=== PATIENT | male | born 1960 | race Caucasian/White ===

== ENCOUNTER 2019-04-02 08:18 | Emergency (ER) | payer MEDICARE ==
[~2019-04-02] VITALS: Ht 72 cm; Wt 118.0 kg
[~2019-04-02 08:18] MED LIST: ALBU0.632 IH; ALBU8.5H2 IH; ALBU8.5H4 IH; ALLO100T PO; ALPR.5T PO; BAKING SODA PO; BSP10T PO; BUDE6HFA IH; CHOL10003 PO; DOXE100C4 PO; DULO60CA6 PO; GABA600T2 PO; HYDR-3583 PO; HYDR1TAB PO; HYDR1TAB86 PO; HYDR50TA3 PO; LISI20TA PO; MELO-198 PO; MNTL10T PO; MPR22TI TOP; OMEG1CAP51 PO; OMEP20CA12 PO; OXC5T PO; POTA10TA6 PO; PRD20T PO; SIMV40TA4 PO; TOBR5DRO2 OP; TRAZ150T42 PO; ZOLP10TA5 PO
--- NOTE | 2019-04-02 09:14 | ED Lower Extremity ---
General Chief Complaint: Lower Extremity Stated Complaint: L FOOT PAIN Nursing Triage Note: PT CO OF R FOOT PAIN, HEEL AREA. STATES WEDNESDAY STEPPED OUT OF TRUCK ON UNEVEN GROUND AND FEELS LIKE TWISTED HEEL, RATES PAIN 09/28. PT STATES THOUGH IT WOULD GET BETTER Nursing Sepsis Screen: No Definite Risk Source: patient History of Present Illness Date Seen by Provider: Apr 02, 2019 Time Seen by Provider: 08:57 Initial Comments PT ARRIVES VIA POV FROM HOME C/O LEFT FOOT PAIN STATES LAST WEDNESDAY AROUND 10:00 AM, HE "STEPPED WRONG" OUT OF HIS TRUCK, ON U[place]VEN SURFACE AND THINKS HE TWISTED HIS HEEL--STATES HE WAS WEARING BOOTS THAT DIDN'T FIT RIGHT AT THE TIME HAS HAD PAIN IN LEFT HEEL SINCE THEN STATES THE AREA IS NOT TENDER TO PALPATION, BUT HAS NOT BEEN ABLE TO WALK ON IT DUE TO PAIN HAS NOT TAKEN ANYTHING FOR PAIN NO PARESTHESIAS OR MOTOR DEFICITS HAS HAD PRIOR FRACTURE TO THIS FOOT, AND HAD A BAD LACERATION TO IT, BUT NO PRIOR SURGERY TO THIS FOOT OR ANKLE PRIOR TO DISMISSAL, PT NOW REPORTS THAT HE HAS BEEN HAVING PAIN IN BOTH HEELS, BUT MORE ON LEFT HEEL, FOR MANY MONTHS--WANTS TO SEE DR. TAM, STATES HE HAS DISCUSSED THIS WITH DR. PERKINS, BUT HAS NOT BEEN REFERRED OR MADE AN APPOINTMENT [facility] PERK[facility] Allergies and Home Medications Allergies Coded Allergies: No Known Drug Allergies (Unverified , 03/20/10) Home Medications Albuterol 8.5 Gm Hfa.aer.ad, 8.5 GM IH Q4H PRN, (Reported) 2 PUFFS PRN ASTHMA Albuterol Sulfate 0.63 Mg/3 Ml Vial.neb, 1 VIAL IH Q4HR PRN, (Reported) PRN ASTHMA Allopurinol 100 Mg Tab, 100 MG PO DAILY, (Reported) Alprazolam 0.5 Mg Tablet, 0.5 MG PO TID, (Reported) Budesonide/Formoterol Fumarate 10.2 Gm Hfa.aer.ad, 2 PUFF IH BID, (Reported) Buspirone Hcl 10 Mg Tablet, 10 MG PO BID, (Reported) Cholecalciferol 1,000 Unit Tablet, 1,000 UNIT PO DAILY, (Reported) Doxepin Hcl 100 Mg Capsule, 100 MG PO DAILY, (Reported) Duloxetine Hcl 60 Mg Capsule.dr, 60 MG PO DAILY, (Reported) Gabapentin 600 Mg Tablet, 600 MG PO TID, (Reported) Hydrocodone Bit/Acetaminophen 1 Tab Tab, 1 EA PO Q4-6 hrs PRN, (Reported) Lisinopril 20 Mg Tablet, 20 MG PO DAILY, (Reported) Meloxicam 15 Mg Tablet, 15 MG PO DAILY Prescribed by: ANETTE PRICE on 04/02/19 0956 Montelukast Sodium 10 Mg Tab, 10 MG PO DAILY, (Reported) [place]-3 Fatty Acids/Fish Oil 1 Each Capsule, 1,000 MG PO DAILY, (Reported) Omeprazole 20 Mg Capsule.dr, 20 MG PO DAILY, (Reported) Oxycodone Hcl 5 Mg Tab, 1 TAB PO Q4H PRN Prescribed by: KECIA GONZALEZ on 01/09/13 1001 Simvastatin 40 Mg Tablet, 40 MG PO DAILY, (Reported) Trazodone Hcl 150 Mg Tablet, 150 MG PO HS, (Reported) [Baking Soda] , 1 TSP PO DAILY, (Reported) DISSOLVE IN WATER Patient Home Medication List Home Medication List Reviewed: Yes Review of Systems Constitutional: no symptoms reported Musculoskeletal: see HPI Skin: no symptoms reported Psychiatric/Neurological: No Symptoms Reported Past Nmkxnqs-Qpgbkz-Zhhgmz Hx Patient Social History Alcohol Use: Occasionally Uses Recreational Drug Use: No Smoking Status: Former Smoker Recent Foreign Travel: No Contact w/Someone Who Travel: No Recent Infectious Disease Expo: No Recent Hopitalizations: No Physical Abuse: No Sexual Abuse: No Immunizations Up To Date Date of Pneumonia Vaccine: Jan 04, 2010 Date of Influenza Vaccine: Feb 04, 2013 Past Medical History Surgeries: Yes (R PAROTID GLAND, BENIGN NECK TUMORS,PILONIDAL CYST,SKIN CA L FA/SKIN GRAFT) Respiratory: Yes Asthma Cardiac: Yes High Cholesterol, Hypertension Neurological: No Reproductive Disorders: No Genitourinary: No Gastrointestinal: Yes Gastroesophageal Reflux, Hiatal Hernia Musculoskeletal: Yes (RESTLESS LEG SYNDROME; LEFT FOOT FRACTURE--NO SURGERY; ) Gout Endocrine: No Cancer: Yes (SQUAMOUS CELL CA LEFT FOREARM) Skin Did You Recieve Any Treatments: Yes What Type of Treatment Did You: Surgical Intervention Psychosocial: Yes Anxiety, Depression Integumentary: Yes (SKIN CANCER) Blood Disorders: No Physical Exam Vital Signs Vital Signs - First Documented 04/02/19 08:30 Temp 36.7 Pulse 73 Resp 20 B/P (MAP) 192/107 (135) Pulse Ox 90 O2 Delivery Room Air Capillary Refill : Less Than 3 Seconds Height, Weight, BMI Height: 5'11" Weight: 273lbs. 0.0oz. [id number]; 227.00 BMI Method:Stated General Appearance: WD/WN, no apparent distress, other (SMILING, TALKATIVE. ) Ankles: left ankle non-tender, left ankle normal inspection, left ankle normal range of motion, left ankle no evidence of injury Feet: left foot normal inspection, left foot normal range of motion, left foot no evidence of injury, left foot bone tenderness (MARKED PINPOINT TENDERNESS TO CENTER OF HEEL), left foot soft tissue tenderness (MARKED PINPOINT TENDERNESS TO CENTER OF HEEL), left foot other (PAIN WITH WEIGHT BEARING TO LEFT HEEL. NO SWELLING OR BRUISING OR EXTERNAL EVIDENCE OF TRAUMA. 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, no motor/sensory deficits, alert, normal mood/affect, oriented x 3 Skin: normal color, warm/dry; No ecchymosis Procedures/Interventions Splinting and Joint Reduction : Rj wrap: Yes Immobilizers: Step Light Walker s/m/lg Progress/Results/Core Measures Results/Orders My Orders Orders - ANETTE PRICE DO Foot, Left, 3 Views (04/02/19 09:08) Heel, Left, 2 View (04/02/19 09:08) Rj Bandage (04/02/19 09:53) Steplite (04/02/19 09:53) Vital Signs/I&O 04/02/19 04/02/19 08:30 10:12 Temp 36.7 36.7 Pulse 73 73 Resp 20 20 B/P (MAP) 192/107 (135) 192/107 (135) Pulse Ox 90 90 O2 Delivery Room Air Blood Pressure Mean: 135 Progress Progress Note : Progress Note PT REPORTS THAT HE HAS NOT TAKEN HIS BP MEDICATION TODAY, AND HIS BP IS FINE AFTER HE TAKES IT. PT REPORTS THAT O2 SAT OF 90% "IS GOOD FOR ME" PT IS ASYMPTOMATIC REGARDING THESE VITALS Diagnostic Imaging Comments XRAYS: PER RADIOLOGIST REPORTS AT 0949: LEFT FOOT--DEGENERATIVE CHANGES, NO ACUTE PROCESS LEFT HEEL--DEGENERATIVE CHANGES, HEEL SPUR. NO ACUTE PROCESS Reviewed: Reviewed by Me Departure Impression Primary Impression: LEFT HEEL SPUR Disposition: 01 HOME, SELF-CARE Condition: Stable Departure-Patient Inst. Referrals: ALEM PERKINS MD (PCP/Family) Primary Care Physician DELMIS TAM DPM Patient Instructions: Heel Pain (Caused by Plantar Fasciitis) (DC), Heel Spurs (DC) Add. Discharge Instructions: RJ WRAP AND WALKING BOOT NEEDED FOR COMFORT ELEVATE FOOT MUCH POSSIBLE ICE TO AREA AT 20 MINUTE INTERVALS FOLLOW UP WITH DR. TAM THIS WEEK FOR FURTHER CARE All discharge instructions reviewed with patient and/or family. Voiced understanding. Scripts Meloxicam (Mobic) 15 Mg Tablet 15 MG PO DAILY, #10 TAB Prov: ANETTE PRICE DO 04/02/19 Images Extremities-Lower 1 - Severe, Tenderness ANETTE PRICE DO Apr 02, 2019 09:14
--- NOTE | 2019-04-02 09:37 | Diagnostic Imaging Report ---
EXAMINATION: Left foot radiographs, 3 views. COMPARISON: None. HISTORY: 58-year-old male, foot pain. FINDINGS: There is mild degenerative type calcaneal enthesopathy. There is mild dorsal degenerative-type enthesopathy of the mid foot. There is no identified acute fracture. There is no cortical or aggressive bone destruction. There is no radiographically apparent foreign body. IMPRESSION: No identified acute bony abnormality of the left foot. Dictated by: Dictated on workstation # [id number]
--- NOTE | 2019-04-02 09:37 | Diagnostic Imaging Report ---
EXAMINATION: Left calcaneus, 2 views. COMPARISON: Left foot radiographs November 05, 2014. HISTORY: 58-year-old male, heel pain. FINDINGS: There is minimal degenerative-type enthesopathy at the Achilles tendon insertion. There is a small calcaneal heel spur. There is no acute fracture. There is no bone erosion. There is preservation of normal fat attenuation in the region of the retrocalcaneal bursa. There is no radiopaque foreign body. IMPRESSION: 1. No acute bony abnormality of the left calcaneus. 2. Mild degenerative type calcaneal enthesopathy. Dictated by: Dictated on workstation # [id number]
[2019-04-02] MEDS ORDERED: MELO15TA14 PO (09:56)
[2019-04-02 10:12] VITALS: BP 192/107
== END 2019-04-02 10:17 | disposition home or self-care (01) ==
LOC: EDUNIT# 08:18 → ER 08:19
DX: M77.30 Calcaneal spur, unspecified foot (principal); J45.909 Unspecified asthma, uncomplicated; I10 Essential (primary) hypertension; E78.00 Pure hypercholesterolemia, unspecified; F41.9 Anxiety disorder, unspecified; F32.9 Major depressive disorder, single episode, unspecified; K21.9 Gastro-esophageal reflux disease without esophagitis; M10.9 Gout, unspecified; Z85.828 Personal history of other malignant neoplasm of skin; Z87.891 Personal history of nicotine dependence; X50.1XXA Overexertion from prolonged static or awkward postures, initial encounter
CPT/HCPCS: 73630; 73650

== ENCOUNTER 2020-09-18 15:29 | Emergency (ER) | payer MEDICARE, OTHER ==
[~2020-09-18] VITALS: Ht 182.9 cm; Wt 113.4 kg
[~2020-09-18 15:29] MED LIST changes: +MELO15TA14 PO
[2020-09-18 15:35] VITALS: BP 160/97
[2020-09-18] MEDS ORDERED: LIDOCAINE 1% INJ 20 ML 20 ML VIAL INJ ONE (16:00)
--- NOTE | 2020-09-18 16:45 | ED Upper Extremity ---
General Chief Complaint: Laceration Stated Complaint: CUT FINGER R HAND Nursing Triage Note: PT ARRIVED BY PRIVATE VEHICLE WITH CHIEF COMPLAINT OF LACERATION TO FINGER. PT WAS ALERT, ORIENTED X 4 AND AMBULATORY TO FAST TRACK 3. PT STATED AROUND 1400 HE HAD CUT HIS FINGER ON METAL (4TH FINGER OF RIGHT HAND). PT HAD A BANDAID ON FINGER WITH CONTROLED BLEEDING. PT'S VITALS WERE DONE, AND CLEANED WITH WATER/SURGICAL SCRUB. REPORT WAS GIVEN TO PROVIDER. Source: patient Exam Limitations: no limitations History of Present Illness Date Seen by Provider: Sep 18, 2020 Time Seen by Provider: 15:50 Initial Comments This 59-year-old gentleman presents to the emergency room with a flap laceration on the palmar aspect of his right ring finger. He picked up a new piece of sheet metal that caused the laceration. He forgot to put gloves on before handling the metal. Bleeding is controlled. He reports being up-to-date on his tetanus immunization. He has numbness of the finger about 1 to 2 cm distal to the laceration. He has wheezing which he states is normal for him. He declines a breathing treatment. Allergies and Home Medications Allergies Coded Allergies: No Known Drug Allergies (Unverified , 03/20/10) Home Medications Albuterol 8.5 Gm Hfa.aer.ad, 8.5 GM IH Q4H PRN, (Reported) 2 PUFFS PRN ASTHMA Albuterol Sulfate 0.63 Mg/3 Ml Vial.neb, 1 VIAL IH Q4HR PRN, (Reported) PRN ASTHMA Allopurinol 100 Mg Tab, 100 MG PO DAILY, (Reported) Alprazolam 0.5 Mg Tablet, 0.5 MG PO TID, (Reported) Budesonide/Formoterol Fumarate 10.2 Gm Hfa.aer.ad, 2 PUFF IH BID, (Reported) Buspirone Hcl 10 Mg Tablet, 10 MG PO BID, (Reported) Cholecalciferol 1,000 Unit Tablet, 1,000 UNIT PO DAILY, (Reported) Doxepin Hcl 100 Mg Capsule, 100 MG PO DAILY, (Reported) Duloxetine Hcl 60 Mg Capsule.dr, 60 MG PO DAILY, (Reported) Gabapentin 600 Mg Tablet, 600 MG PO TID, (Reported) Hydrocodone Bit/Acetaminophen 1 Tab Tab, 1 EA PO Q4-6 hrs PRN, (Reported) Lisinopril 20 Mg Tablet, 20 MG PO DAILY, (Reported) Meloxicam 15 Mg Tablet, 15 MG PO DAILY Prescribed by: ANETTE PRICE on 04/02/19 0956 Montelukast Sodium 10 Mg Tab, 10 MG PO DAILY, (Reported) [place]-3 Fatty Acids/Fish Oil 1 Each Capsule, 1,000 MG PO DAILY, (Reported) Omeprazole 20 Mg Capsule.dr, 20 MG PO DAILY, (Reported) Oxycodone Hcl 5 Mg Tab, 1 TAB PO Q4H PRN Prescribed by: KECIA GONZALEZ on 01/09/13 1001 Simvastatin 40 Mg Tablet, 40 MG PO DAILY, (Reported) Trazodone Hcl 150 Mg Tablet, 150 MG PO HS, (Reported) [Baking Soda] , 1 TSP PO DAILY, (Reported) DISSOLVE IN WATER Patient Home Medication List Home Medication List Reviewed: Yes Review of Systems Constitutional: no symptoms reported EENTM: no symptoms reported Respiratory: see HPI Cardiovascular: no symptoms reported Gastrointestinal: no symptoms reported Genitourinary: no symptoms reported Musculoskeletal: no symptoms reported Skin: see HPI Psychiatric/Neurological: See HPI Past Gjqhhml-Rbseqq-Azkhnr Hx Patient Social History Tobacco Use?: No Smoking Status: Never a Smoker Smokeless Tobacco Frequency: Never a User Use of E-Cig and/or Vaping Xavi: Never a User Substance use?: Yes Substance type: Marijuana Substance frequency: Once in a while Alcohol Use?: Yes Alcohol Frequency: Once in a while Pt feels they are or have been: No Immunizations Up To Date Tetanus Booster (TDap): Less than 5yrs Past Medical History Surgeries: Yes (R PAROTID GLAND, BENIGN NECK TUMORS,PILONIDAL CYST,SKIN CA L FA/SKIN GRAFT) Respiratory: Yes Asthma Cardiac: Yes High Cholesterol, Hypertension Neurological: No Reproductive Disorders: No Genitourinary: No Gastrointestinal: Yes Gastroesophageal Reflux, Hiatal Hernia Musculoskeletal: Yes (RESTLESS LEG SYNDROME; LEFT FOOT FRACTURE--NO SURGERY; ) Gout Endocrine: No Cancer: Yes (SQUAMOUS CELL CA LEFT FOREARM) Skin Did You Recieve Any Treatments: Yes What Type of Treatment Did You: Surgical Intervention Psychosocial: Yes Anxiety, Depression Integumentary: Yes (SKIN CANCER) Blood Disorders: No Physical Exam Vital Signs Vital Signs - First Documented 09/18/20 15:35 Temp 36.7 Pulse 77 Resp 18 B/P (MAP) 160/97 (118) Pulse Ox 95 Capillary Refill : Less Than 3 Seconds Height, Weight, BMI Height: 5'11" Weight: 273lbs. 0.0oz. [id number]; 33.00 BMI Method:Stated General Appearance: WD/WN, no apparent distress HEENT: normal ENT inspection Respiratory: no respiratory distress, wheezing Wrist: Yes normal inspection, Yes no evidence of injury, Yes normal ROM (Tendon function intact) Hand: Left (3 cm flap laceration on the palmar aspect of the right ring finger over the middle phalanx. Tendon function intact. 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, alert, normal mood/affect, oriented x 3; No motor weakness; other (Numbness in the 1 to 2 cm of the skin distal to the laceration.) Skin: normal color, warm/dry, other (See above) Procedures/Interventions Other Wound Location Right ring finger, palmar aspect over the middle phalanx Wound Length (cm): 3 Wound's Depth, Shape: flap, sub Q Wound Explored: clean Irrigated w/ Saline (ccs): 200 Betadine Prep?: Yes Anesthesia: 1% Lidocaine Volume Anesthetic (ccs): 5 Suture: Prolene Suture Size: 5-0 Number of Sutures: 8 Layer Closure?: 1 Sterile Dressing Applied?: Yes Skin was cleaned with alcohol and a digital block was performed. This was followed by a local block at the site of the laceration. Open wound was sprayed with lidocaine for additional topical anesthetic. Wound was then irrigated with saline and chlorhexidine soap and rinsed with saline. Betadine was applied and the wound was approximated with 5-0 Prolene interrupted sutures after inspection for foreign bodies. Patient tolerated the procedure well. Bleeding was controlled. Nursing staff dressed the wound and placed in AlumaFoam splint. Progress/Results/Core Measures Results/Orders My Orders Orders - DONOVAN PARKS MD Lidocaine 1% Inj 20 Ml (Xylocaine 1% Inj (09/18/20 16:00) Medications Given in ED Vital Signs/I&O Blood Pressure Mean: 118 Progress Progress Note : Progress Note Digital block was performed followed by a local anesthetic injection. Wound was irrigated with saline and chlorhexidine and then rinsed with saline. Wound was repaired with interrupted sutures. It was dressed and splinted by nursing staff. Patient tolerated the procedure well. Departure Impression Primary Impression: Laceration of finger Qualified Codes: S61.214A - Laceration without foreign body of right ring finger without damage to nail, initial encounter Disposition: 01 HOME, SELF-CARE Condition: Improved Departure-Patient Inst. Decision time for Depature: 16:43 Referrals: ALEM PERKINS MD (PCP/Family) Primary Care Physician Patient Instructions: Laceration Repair With Stitches (DC) Add. Discharge Instructions: Keep the wound clean and dry. Starting tomorrow you may wash your hands and shower, but do not submerge until the stitches are removed. You may use the splint to help protect the wound. Cover whenever active or in dirty environments. You may leave open to air when at rest at home. Monitor for signs of infection such as increasing redness, puslike drainage, escalating pain, or fever. Return to care promptly if you notice the symptoms. Return in 10 days to have the sutures removed. Call with questions or concerns. Return to care if you have any other significant concerns. All discharge instructions reviewed with patient and/or family. Voiced understanding. DONOVAN PARKS MD Sep 18, 2020 16:45
== END 2020-09-18 16:52 | disposition home or self-care (01) ==
LOC: EDUNIT# 15:29 → ER 15:32
DX: S61.214A Laceration without foreign body of right ring finger without damage to nail, initial encounter (principal); I10 Essential (primary) hypertension; E78.00 Pure hypercholesterolemia, unspecified; M10.9 Gout, unspecified; K21.9 Gastro-esophageal reflux disease without esophagitis; J45.909 Unspecified asthma, uncomplicated; F41.9 Anxiety disorder, unspecified; F32.9 Major depressive disorder, single episode, unspecified; Z79.899 Other long term (current) drug therapy; W26.8XXA Contact with other sharp object(s), not elsewhere classified, initial encounter

== ENCOUNTER 2020-09-28 12:11 | Emergency (ER) | payer MEDICARE ==
[~2020-09-28] VITALS: Ht 183 cm; Wt 110.0 kg
[2020-09-28 12:46] VITALS: BP 138/68
== END 2020-09-28 12:48 | disposition home or self-care (01) ==
LOC: EDUNIT# 12:11 → ER 12:12
DX: Z48.02 Encounter for removal of sutures (principal)

== ENCOUNTER → 2021-06-12 | Outpatient (CLI) | payer MEDICARE ==
[~2021-06-12] MED LIST changes: +RT-ALBUTEROL SULF 2.5 MG/3 ML PRE-MIX VIAL INH ONE
== END ==
LOC: RT 15:45
PROVIDERS: ATTEND Nurse Practitioner
DX: J44.9 Chronic obstructive pulmonary disease, unspecified (principal)
CPT/HCPCS: 94060; 94726; 94729

== ENCOUNTER → 2021-06-20 | Outpatient (CLI) | payer MEDICARE ==
[~2021-06-20] MED LIST changes: -RT-ALBUTEROL SULF 2.5 MG/3 ML PRE-MIX VIAL INH ONE
--- NOTE | 2021-06-20 17:19 | Diagnostic Imaging Report ---
EXAMINATION: CT abdomen and pelvis without contrast. TECHNIQUE: Multiple contiguous axial images were obtained through the abdomen and pelvis without the use of intravenous contrast. All CT scans use one or more of the following dose optimizing techniques: automated exposure control, MA and/or KvP adjustment based on patient size and exam type or iterative reconstruction. HISTORY: HEMATURIA COMPARISON: 12/22/2010 FINDINGS: Lung bases: Bibasilar dependent atelectasis. Solid organs: The liver is normal. The gallbladder is normal. There is no biliary ductal dilation. Pancreas is normal. Spleen is normal. Adrenal glands are normal. There is mild left hydronephrosis with hyperdensity seen within the left renal pelvis. No visualized obstructing renal calculus. There are bilateral renal cystic lesions present, a few of which are mildly hyperdense but incompletely characterized on this exam. Bowel: The stomach and small bowel are normal without obstruction. There is scattered colonic diverticulosis. Appendix is normal. Peritoneum: There is no intraperitoneal free fluid or free air. No suspicious lymphadenopathy. Vasculature: Normal without aneurysm. Musculoskeletal: Degenerative changes of the spine without suspicious osseous lesion or compression fracture. Pelvis: The prostate gland is normal. The urinary bladder is normal. IMPRESSION: 1. Hyperdense material within the left renal pelvis with mild left hydronephrosis. This could represent debris or blood products although urothelial mass could have a similar appearance. Recommend correlation with CT urography. 2. No renal calculus. 3. Multiple bilateral renal cortical lesions, many of which are indeterminate. This could also be followed up with CT urography. Dictated by: Dictated on workstation # [id number]
== END ==
LOC: RAD 16:15
PROVIDERS: ATTEND Urology
DX: N13.30 Unspecified hydronephrosis (principal); N28.9 Disorder of kidney and ureter, unspecified
CPT/HCPCS: 74176

== ENCOUNTER → 2021-06-30 | Outpatient (CLI) | payer MEDICARE ==
--- NOTE | 2021-06-30 17:10 | Diagnostic Imaging Report ---
INDICATION: RENAL LESIONS TECHNIQUE: Multiple real-time grayscale sonographic images were obtained of the kidneys. CORRELATION: Renal ultrasound 12/22/2010, CT abdomen and pelvis 06/20/2021. FINDINGS: RIGHT KIDNEY: 12.8 x 5.7 x 5.3 cm. Hypoechoic mass of the right kidney present. Two at the superior pole present, with one measuring 2.4 x 1.9 x 2.1 cm, addition 1.8 x 2.1 x 1.9 cm. One at the inferior pole 1.7 x 1.5 x 1.4 cm. No hydronephrosis. LEFT KIDNEY: 12.1 x 6.9 x 5.4 cm. Multiple hypoechoic masses compatible cysts of the left kidney as well. These overall larger with one superior pole 4.9 x 3.6 x 4.9 cm. One centrally 3.8 x 2.9 x 2.6 cm. Third one 4.7 x 4.8 x 3.2 cm. Question mild left-sided hydronephrosis. URINARY BLADDER: The partially distended bladder has an unremarkable appearance. Bilateral ureteral jets are present. IMPRESSION: 1. Bilateral renal cysts left larger than right. Suggestion of mild left-sided hydronephrosis. Dictated by: Dictated on workstation # [id number]
== END ==
LOC: RAD 15:15
PROVIDERS: ATTEND Urology
DX: N28.1 Cyst of kidney, acquired (principal)
CPT/HCPCS: 76770

== ENCOUNTER 2021-07-24 05:32 | Outpatient (CLI) | payer MEDICARE ==
[~2021-07-24] VITALS: Ht 180.3 cm; Wt 118.0 kg
[2021-07-24] MEDS ORDERED: ACET325C7 PO (16:33)
[2021-07-24] MEDS ORDERED: ALBU1.25 INH (16:33)
[2021-07-24] MEDS ORDERED: OMG1KC PO (16:33)
[2021-07-24] MEDS ORDERED: FESO4TAB PO (16:33)
[2021-07-24] MEDS ORDERED: OMEP20CA18 PO (16:33)
[2021-07-24] MEDS ORDERED: LISI20TA26 PO (16:33)
[2021-07-24] MEDS ORDERED: TMSL.4C PO (16:33)
[2021-07-24] MEDS ORDERED: BUDE10.2 IH (16:33)
[2021-07-24] MEDS ORDERED: ALB0.5V INH (16:33)
[2021-07-24] MEDS ORDERED: ROPI2TAB6 PO (16:33)
[2021-07-24] MEDS ORDERED: CALC-250 PO (16:33)
[2021-07-24] MEDS ORDERED: GBPN600T PO (16:33)
[2021-07-24] MEDS ORDERED: ALLO300T2 PO (16:33)
[2021-07-24] MEDS ORDERED: TIOT18CA2 IH (16:33)
[2021-07-24] MEDS ORDERED: TORS20TA3 PO (16:33)
[2021-07-24] MEDS ORDERED: AMLO-251 PO (16:33)
== END 2021-07-24 16:46 | disposition home or self-care (01) ==
LOC: PREOP 05:32
PROVIDERS: ATTEND Urology
DX: Z01.818 Encounter for other preprocedural examination (principal)

== ENCOUNTER 2021-07-29 07:25 | Day surgery (SDC) | payer MEDICARE ==
[2021-07-29] VITALS (11 sets, daily range): BP systolic 90–141; BP diastolic 55–73
[~2021-07-29] VITALS: Ht 180.3 cm; Wt 118.0 kg
[~2021-07-29 07:25] MED LIST changes: +ACET325C7 PO; +ALB0.5V INH; +ALBU1.25 INH; +ALLO300T2 PO; +AMLO-251 PO; +BUDE10.2 IH; +CALC-250 PO; +FESO4TAB PO; +GBPN600T PO; +LISI20TA26 PO; +OMEP20CA18 PO; +OMG1KC PO; +ROPI2TAB6 PO; +TIOT18CA2 IH; +TMSL.4C PO; +TORS20TA3 PO
[2021-07-29] MEDS ORDERED: cefTRIAXone 1 GM PRE-MIX 50 ML IV ONE (08:00)
[2021-07-29] MEDS: LACTATED RINGERS 1,000 ML IV PRN ×2 (08:33→10:21)
--- NOTE | 2021-07-29 09:20 | Progress Note-Pre Operative ---
Pre-Operative Progress Note H&P Reviewed The H&P was reviewed, patient examined and no changes noted. Date Seen by Provider: July 29, 2021 Time Seen by Provider: 09:19 Date H&P Reviewed: July 29, 2021 Time H&P Reviewed: 09:20 Pre-Operative Diagnosis: LT RENAL PELVIC MASS TYRESE BOWLES MD July 29, 2021 09:20
[2021-07-29] MEDS ORDERED: DULO60CA59 PO (09:26)
[2021-07-29] MEDS ORDERED: ONDANSETRON 4 MG/2 ML (SDV) Z0FRAN ONE (09:36)
[2021-07-29] MEDS ORDERED: MIDAZOLAM 2 MG/2 ML (VERSED) VIAL ONE (09:36)
[2021-07-29] MEDS ORDERED: LIDOCAINE PF 2% 5 ML (XYLOCAINE) VIAL ONE (09:36)
[2021-07-29] MEDS ORDERED: proPOfol 200 MG/20 ML (DIPRIVAN) VIAL IV ONE (09:36)
[2021-07-29] MEDS ORDERED: fentaNYL INJ 100 MCG/2 ML AMP ONE (09:36)
--- NOTE | 2021-07-29 10:06 | Progress Note-Post Operative ---
Post-Operative Progess Note Surgeon (s)/Migration Agent (s) Surgeon TYRESE BOWLES MD Migration Agent: NONE Pre-Operative Diagnosis LT RENAL PELVIC MASS Post-Operative Diagnosis SAME Procedure & Operative Findings Date of Procedure 07/29/21 Procedure Performed/Findings CYSTOSCOPY, RT URETERAL CATHETERIZATION ,BARBOTAGE CYTOLOGY, RETROGRADE UROGRAM AND LT URETEROSCOPY Anesthesia Type GENERAL Estimated Blood Loss Estimated blood loss (mL): NONE Specimens/Packing Specimens Removed NONE Packing: NONE TYRESE BOWLES MD July 29, 2021 10:06
[2021-07-29] MEDS ORDERED: SEVOFLURANE (ULTANE) 15 ML INHAL SOLN ONE (10:27)
--- NOTE | 2021-07-29 10:38 | Discharge Inst-Urology ---
Discharge Inst-Urology Reconcile Patient Problems Problems Reviewed?: Yes Final Diagnosis LT RENAL PELVIC MASS Patient Instructions/Follow Up Plan/Assessment/Instructions Come to office this Tuesday 08/01 at 11am. Increase oral fluids for 48 hours and then as needed. Diet and Activity as tolerated. If questions or concerns contact your physician Or seek help at emergency department. TYRESE BOWLES MD July 29, 2021 10:38
[2021-07-29] MEDS ORDERED: HYDROmorphone 2 MG/ML VIAL (DILAUDID) IV ONE (11:00)
[2021-07-29] MEDS ORDERED: morphine INJ 10 MG/ML 1ML (SYR OR VIAL) IVP ONE (11:00)
[2021-07-29] MEDS ORDERED: ONDANSETRON 4 MG/2 ML (SDV) Z0FRAN IVP PRN (11:00)
--- NOTE | 2021-07-29 11:40 | Anesthesia-General Post-Op ---
General Patient Condition Mental Status/LOC: Same as Preop Cardiovascular: Satisfactory Nausea/Vomiting: Absent Respiratory: Satisfactory Pain: Controlled Complications: Absent Post Op Complications Complications None Follow Up Care/Instructions Patient Instructions None needed. Anesthesia/Patient Condition Patient Condition Patient is doing well, no complaints, stable vital signs, no apparent adverse anesthesia problems. FARIDEH PARRA DO July 29, 2021 11:39
[2021-07-29] MEDS ORDERED: PHEN-640 PO (12:28)
[2021-07-29] MEDS ORDERED: NITR-65 PO (12:28)
--- NOTE | 2021-07-29 14:19 | Diagnostic Imaging Report ---
Fluoroscopy. Indication: Retrograde urogram Fluoroscopic assistance was provided for Dr. Morris. 54.6 fluoroscopy time was utilized. Three spot films of the left abdomen were obtained. There is a retrograde device in place and the left ureter and left pelvic calyceal system have been partially opacified. Impression: Fluoroscopic assistance was provided for Dr. Morris. Dictated by: Dictated on workstation # [id number]
--- NOTE | 2021-07-29 15:17 | OPERATIVE REPORT ---
DATE OF SERVICE: 07/29/2021 PREOPERATIVE DIAGNOSIS: Left renal pelvic mass. POSTOPERATIVE DIAGNOSIS: Left renal pelvic mass. OPERATION PERFORMED: Cystoscopy, left ureteral catheterization, barbotage cytology, retrograde urogram and ureteroscopy. SURGEON: Pablo Bowles MD ANESTHESIA: General. COMPLICATIONS: None. DESCRIPTION OF PROCEDURE: Under satisfactory general anesthesia, the patient in lithotomy position, genitalia were prepped and draped in the usual sterile fashion. Cystoscope was introduced under vision. The anterior urethra was normal. There was some enlargement of the prostate with bladder neck obstruction and some trabeculations. Using the foroblique lens, I passed a 5-Turkmen ureteral catheter all the way up to the left renal pelvis guided fluoroscopically. I injected contrast. There was definitely a filling defect in the pelvis of the kidney giving the appearance of a highly suspicious tumor. Before I did a retrograde, I did a barbotage cytology. Then, I removed ureteral catheter, performed dilatation of the left ureteral orifice intramural portion to accommodate a 6.9 Turkmen semi-rigid ureteroscope, went all the way up to the ureteropelvic junction, but I could not manipulate it into the renal pelvis. I did not want to attempt further to avoid any problems. I withdrew the ureteroscope. The patient tolerated the procedure and anesthesia well and was sent to recovery room in stable condition. Plan which I explained to the family and the patient preoperatively: We will refer him to [facility] for a left flexible ureteroscopy, possible biopsy, possible treatment if amenable or further management. Job ID: [id number] DocumentID: [id number] Dictated Date: 07/29/2021 10:42:38 Classification Control Clerk Date: 07/29/2021 15:15:18 Dictated By: PABLO BOWLES MD
== END 2021-07-29 12:43 | disposition home or self-care (01) ==
LOC: SDC 07:25
PROVIDERS: ATTEND Urology
DX: D41.12 Neoplasm of uncertain behavior of left renal pelvis (principal); E66.9 Obesity, unspecified; Z68.36 Body mass index [BMI] 36.0-36.9, adult
CPT/HCPCS: 76000; 87081

== ENCOUNTER → 2021-08-15 | Outpatient (CLI) | payer MEDICARE ==
[~2021-08-15] MED LIST changes: +DULO60CA59 PO; +NITR-65 PO; +PHEN-640 PO
--- NOTE | 2021-08-15 12:37 | Diagnostic Imaging Report ---
PROCEDURE: US Renal Bilateral. TECHNIQUE: Multiple real-time grayscale images were obtained over the kidneys in various projections bilaterally. INDICATION: Chronic kidney disease stage III. Right kidney measures 10.7 x 5.7 x 6.1 cm. The left kidney measures 12.1 x 5.6 x 6.9 cm. Renal cortical thickness and echogenicity appears normal. There are numerous cortical renal cysts present bilaterally. The largest cyst on the right is in the lower pole measuring approximately 3.3 cm. The largest cyst on the left is in the upper pole approximately 4.4 x 4.5 cm. No definite calculi or hydronephrosis is seen within either kidney. Bladder volume is 102 mL. Postvoid volume is 33 mL. There is an echogenic structure along the right aspect of the bladder base approximately 1.4 cm in size. IMPRESSION: 1. Renal cystic disease bilaterally. No calculi or hydronephrosis is detected. 2. Echogenic focus in the bladder base, 14 mm in size, indeterminate. This could represent bladder calculus versus a bladder neoplasm. Cystoscopy would be recommended for further evaluation. Dictated by: Dictated on workstation # [id number]
== END ==
LOC: RAD 10:00
PROVIDERS: ATTEND Internal Medicine Nephrology
DX: N28.1 Cyst of kidney, acquired (principal); I12.9 Hypertensive chronic kidney disease with stage 1 through stage 4 chronic kidney disease, or unspecified chronic kidney disease; N18.32 Chronic kidney disease, stage 3b; N25.81 Secondary hyperparathyroidism of renal origin; R80.8 Other proteinuria
CPT/HCPCS: 76770

== ENCOUNTER 2022-09-26 12:41 | Emergency (ER) | payer MEDICARE ==
[~2022-09-26] VITALS: Ht 182.8 cm; Wt 122.4 kg
[2022-09-26] MEDS ORDERED: MUPI22OI2 TP (14:12)
[2022-09-26] MEDS ORDERED: CEPH500T PO (14:12)
--- NOTE | 2022-09-26 14:12 | ED Upper Extremity ---
General Chief Complaint: Laceration Stated Complaint: INJ LEFT ARM Nursing Triage Note: PT AMB TO FT2 WITH CC OF LAC TO LEFT FOREARM. PT STATED THAT HE WAS CUTTING CORN WITH A KNIFE AND CUT HIS ARM AN HR AGO. LAST TETANUS SHOT WAS 3 YRS AGO. History of Present Illness Date Seen by Provider: Sep 26, 2022 Time Seen by Provider: 13:10 Initial Comments 61-year-old gentleman presents with a laceration to his left forearm. He was cutting corn in his field when it slipped causing an injury with both an entrance and exit wound in his left forearm, dorsal side, superficial. he denies being diabetic, he is not on anticoagulants. There is no active bleeding coming from the wound. He had a tetanus shot approximately 3 years ago. Denies any other injuries. Knife was brand new. Onset: just prior to arrival Pain/Injury Location: left forearm Method of Injury: incised Allergies and Home Medications Allergies Coded Allergies: bacitracin (Verified Allergy, Unknown, 09/26/22) neomycin (Verified Allergy, Unknown, 09/26/22) polymyxin B (Verified Allergy, Unknown, 09/26/22) Patient Home Medication List Home Medication List Reviewed: Yes Acetaminophen (Tylenol) 325 Mg Capsule, 650 MG PO DAILY, (Reported) Entered as Reported by: MELONIE MARION on 07/24/21 1633 Albuterol Sulfate (Albuterol Sulfate) 2.5 Mg/0.5 Ml Vial.neb, 2.5 MG INH DAILY PRN, (Reported) Entered as Reported by: MELONIE MARION on 07/24/21 1633 Allopurinol (Allopurinol) 300 Mg Tablet, 300 MG PO DAILY, (Reported) Entered as Reported by: MELONIE MARION on 07/24/21 1633 Amlodipine Besylate (Amlodipine Besylate) 10 Mg Tablet, 10 MG PO DAILY, (Reported) Entered as Reported by: MELONIE MARION on 07/24/21 1633 Budesonide/Formoterol Fumarate (Symbicort 160-4.5 Mcg Inhaler) 160 Mcg-4.5 Mcg/Actuation Hfa.aer.ad, 2 PUFF IH HS, (Reported) Entered as Reported by: MELONIE MARION on 07/24/21 1633 Cephalexin (Cephalexin) 500 Mg Tablet, 500 MG PO TID Prescribed by: JEANETH KENNY on 09/26/22 1412 Cholecalciferol (Vitamin D3) (Vitamin D3) 125 Mcg (5000 Unit) Tablet, 125 MCG PO DAILY, (Reported) Entered as Reported by: MELONIE MARION on 07/24/21 1633 Duloxetine HCl (Duloxetine HCl) 60 Mg Capsule.dr, 60 MG PO DAILY, (Reported) Entered as Reported by: JOB LUNDBERG on 07/29/21 0926 Fesoterodine Fumarate (Toviaz) 4 Mg Tab.sr.24h, 2 MG PO HS, (Reported) Entered as Reported by: MELONIE MARION on 07/24/21 163 Gabapentin (Gabapentin) 600 Mg Tablet, 600 MG PO BID, (Reported) Entered as Reported by: MELONIE MARION on 07/24/21 1633 Lisinopril (Lisinopril) 20 Mg Tablet, 20 MG PO DAILY, (Reported) Entered as Reported by: MELONIE MARION on 07/24/21 1633 Mupirocin (Mupirocin) 2 % Oint...g., 1 EACH TP TID Prescribed by: JEANETH KENNY on 09/26/22 1412 Nitrofurantoin Monohyd/M-Cryst (Macrobid 100 mg Capsule) 100 Mg Capsule, 1 TAB PO BID WITH MEALS Prescribed by: JOB LUNDBERG on 07/29/21 1228 [place] 3 Polyunsat Fatty Acids (Fish Oil 1,000 mg Capsule) 340 Mg-1,000 Mg Cap, 1,000 MG PO UD, (Reported) Entered as Reported by: MELONIE MARION on 07/24/21 163 Omeprazole (Omeprazole) 20 Mg Capsule.dr, 20 MG PO DAILY, (Reported) Entered as Reported by: MELONIE MARION on 07/24/21 1633 Phenazopyridine HCl (Pyridium) 200 Mg Tablet, 1 TAB PO TID Prescribed by: JOB LUNDBERG on 07/29/21 1228 Ropinirole HCl (Ropinirole HCl) 2 Mg Tablet, 2 MG PO HS, (Reported) Entered as Reported by: MELONIE MARION on 07/24/21 163 Tamsulosin HCl (Flomax) 0.4 Mg Cap, 0.4 MG PO DAILY, (Reported) Entered as Reported by: MELONIE MARION on 07/24/21 163 Tiotropium [place] (Spiriva) 18 Mcg Aerp, 1 INH IH DAILY, (Reported) Entered as Reported by: MELONIE MARION on 07/24/21 163 Torsemide (Torsemide) 20 Mg Tablet, 20 MG PO DAILY, (Reported) Entered as Reported by: MELONIE MARION on 07/24/21 1633 Review of Systems Constitutional: no symptoms reported, see HPI Skin: see HPI, other (lacerations left forearm) All Other Systems Reviewed Negative Unless Noted: Yes Past Olhtkxp-Vwmaxq-Tqntqd Hx Patient Social History Tobacco Use?: No Smoking Status: Former Smoker Substance use?: No Alcohol Use?: No Immunizations Up To Date Tetanus Booster (TDap): Less than 5yrs First/Initial COVID19 Vaccinat: 2020 Second COVID19 Vaccination Naveen: 2020 Third COVID19 Vaccination Date: 03/12/21 Seasonal Allergies Seasonal Allergies: Yes Past Medical History Surgery/Hospitalization HX: COPD, KIDNEY REMOVED, [facility] Surgeries: Yes (R PAROTID GLAND, BENIGN NECK TUMORS,PILONIDAL CYST,SKIN CA L FA/SKIN GRAFT) Respiratory: Yes (INHALERS, NEBULIZER USE) Asthma Currently Using CPAP: No Currently Using BIPAP: No Cardiac: Yes High Cholesterol, Hypertension Neurological: No Reproductive Disorders: No Sexually Transmitted Disease: No Genitourinary: Yes (RENAL LESION) Gastrointestinal: Yes Gastroesophageal Reflux, Hiatal Hernia Musculoskeletal: Yes (RESTLESS LEG SYNDROME; LEFT FOOT FRACTURE--NO SURGERY; ) Gout Endocrine: No HEENT: Yes (GLASSES) Cancer: Yes (SQUAMOUS CELL CA LEFT FOREARM) Skin Did You Recieve Any Treatments: Yes What Type of Treatment Did You: Surgical Intervention Psychosocial: Yes Anxiety, Depression Integumentary: Yes (SKIN CANCER) Blood Disorders: No Family Medical History Reviewed Nursing Family Hx Physical Exam Vital Signs Vital Signs - First Documented 09/26/22 13:10 Temp 36.9 Pulse 65 B/P (MAP) 137/74 (95) Pulse Ox 90 O2 Delivery Room Air Capillary Refill : Height, Weight, BMI Height: 5'11" Weight: 273lbs. 0.0oz. [id number]; 36.00 BMI Method:Actual General Appearance: WD/WN, no apparent distress Cardiovascular: normal peripheral pulses, regular rate, rhythm Respiratory: chest non-tender, lungs clear, normal breath sounds Elbow/Forearm: normal ROM, Left, abrasions (2 cm entrance and exit wounds, lacerations. No active bleeding), soft tissue tenderness Neurologic/Psychiatric: no motor/sensory deficits, alert, normal mood/affect, oriented x 3 Procedures/Interventions Suture Size: 5-0 Progress/Results/Core Measures Results/Orders Vital Signs/I&O 09/26/22 09/26/22 13:10 14:22 Temp 36.9 Pulse 65 61 B/P (MAP) 137/74 (95) 161/81 Pulse Ox 90 90 O2 Delivery Room Air Room Air Blood Pressure Mean: 95 Progress Progress Note : Time: 13:10 Progress Note Patient assessed, wound thoroughly irrigated with 200 mL of normal saline. Bulky dressing applied. Discharge instructions and return precautions reviewed with the patient. Stressed the importance of good wound care to avoid infections. He will follow-up with his primary care in 3 to 4 days. Departure Impression Primary Impression: Laceration of left forearm without complication Qualified Codes: S51.812A - Laceration without foreign body of left forearm, initial encounter Disposition: HOME, SELF-CARE Condition: Improved Departure-Patient Inst. Decision time for Depature: 13:50 Referrals: MORALES NOGUEIRA MD (PCP/Family) Primary Care Physician Patient Instructions: Wound Care (DC) Add. Discharge Instructions: Keep wound clean and dry, cover with dressing or bandaid when out of house. Take Antibiotics as prescribed. Apply antibiotic ointment 3 times daily. Clean wound with soap and water and may rinse it with peroxide 3 times daily. Follow-up with your primary care provider in 3 to 4 days to assure wound is healing and improving. Watch for signs of infection: Redness, swelling, fevers, or discolored drainage. Return to the Emergency Dept for new, urgent healthcare problems. All discharge instructions reviewed with patient and/or family. Voiced understanding. Scripts Mupirocin (Mupirocin) 2 % Oint...g. 1 EACH TP TID for 7 Days, #1 TUBE 0 Refills Prov: JEANETH KENNY 09/26/22 Cephalexin (Cephalexin) 500 Mg Tablet 500 MG PO TID, #21 TAB 0 Refills Prov: JEANETH KENNY 09/26/22 JEANETH KENNY Sep 26, 2022 14:12
[2022-09-26 14:22] VITALS: BP 161/81
== END 2022-09-26 14:22 | disposition home or self-care (01) ==
LOC: EDUNIT# 12:41 → ER 12:43
DX: S51.812A Laceration without foreign body of left forearm, initial encounter (principal); Z87.891 Personal history of nicotine dependence; Z88.1 Allergy status to other antibiotic agents; W26.0XXA Contact with knife, initial encounter

== ENCOUNTER 2022-11-24 12:12 | Observation (INO) | payer MEDICARE ==
[~2022-11-24] VITALS: Ht 180.4 cm; Wt 120.3 kg
[~2022-11-24 12:12] MED LIST changes: +CEPH500T PO; +MUPI22OI2 TP; +ROPI2TAB52 PO; -ROPI2TAB6 PO
--- NOTE | 2022-11-24 12:26 | ED Respiratory ---
General Chief Complaint: Respiratory Problems Stated Complaint: LOW O2 Source: patient, family Exam Limitations: clinical condition History of Present Illness Date Seen by Provider: Nov 24, 2022 Time Seen by Provider: 12:14 Initial Comments 61-year-old male presents to the ER from his primary care clinic for shortness of air and decreased oxygen saturation. The clinic reported that patient was recently treated for pneumonia, now he has become worse. The clinic reported increased confusion, decreased urinary output, decreased oral intake. Patient's states patient is on an antibiotic currently, she did not realize it was for pneumonia. She reports he has had increased confusion and shortness of air. Describes the confusion as though he does not realize she is talking to him and that he is not answering her questions. Patient is talking to staff, but has difficulty answering medical questions. States that he was also complaining of chest pain at 4 AM this morning. Patient had 1 episode of diarrhea this morning. states that patient has only 1 kidney due to cancer, and he has chronic kidney disease. Kidney was removed approximately 13 months ago, patient is not on chemotherapy. denies known history of heart failure. Patient is supposed to wear oxygen at night, but does not wear it. He is not supposed to wear oxygen during the day. Allergies and Home Medications Allergies Coded Allergies: bacitracin (Verified Allergy, Unknown, 09/26/22) neomycin (Verified Allergy, Unknown, 09/26/22) polymyxin B (Verified Allergy, Unknown, 09/26/22) Patient Home Medication List Home Medication List Reviewed: Yes Acetaminophen (Tylenol) 325 Mg Capsule, 650 MG PO DAILY, (Reported) Entered as Reported by: MELONIE MARION on 07/24/21 1633 Albuterol Sulfate (Albuterol Sulfate) 2.5 Mg/0.5 Ml Vial.neb, 2.5 MG INH DAILY PRN, (Reported) Entered as Reported by: MELONIE MARION on 07/24/21 1633 Allopurinol (Allopurinol) 300 Mg Tablet, 300 MG PO DAILY, (Reported) Entered as Reported by: MELONIE MARION on 07/24/21 1633 Amlodipine Besylate (Amlodipine Besylate) 10 Mg Tablet, 10 MG PO DAILY, (Reported) Entered as Reported by: MELONIE MARION on 07/24/21 1633 Budesonide/Formoterol Fumarate (Symbicort 160-4.5 Mcg Inhaler) 160 Mcg-4.5 Mcg/Actuation Hfa.aer.ad, 2 PUFF IH HS, (Reported) Entered as Reported by: MELONIE MARION on 07/24/21 163 Cephalexin (Cephalexin) 500 Mg Tablet, 500 MG PO TID Prescribed by: JEANETH KENNY on 09/26/22 1412 Cholecalciferol (Vitamin D3) (Vitamin D3) 125 Mcg (5000 Unit) Tablet, 125 MCG PO DAILY, (Reported) Entered as Reported by: MELONIE MARION on 07/24/21 163 Duloxetine HCl (Duloxetine HCl) 60 Mg Capsule.dr, 60 MG PO DAILY, (Reported) Entered as Reported by: JOB LUNDBERG on 07/29/21 0926 Fesoterodine Fumarate (Toviaz) 4 Mg Tab.sr.24h, 2 MG PO HS, (Reported) Entered as Reported by: MELONIE MARION on 07/24/21 163 Gabapentin (Gabapentin) 600 Mg Tablet, 600 MG PO BID, (Reported) Entered as Reported by: MELONIE MARION on 07/24/21 163 Lisinopril (Lisinopril) 20 Mg Tablet, 20 MG PO DAILY, (Reported) Entered as Reported by: MELONIE MARION on 07/24/21 163 Mupirocin (Mupirocin) 2 % Oint...g., 1 EACH TP TID Prescribed by: JEANETH KENNY on 09/26/22 1412 Nitrofurantoin Monohyd/M-Cryst (Macrobid 100 mg Capsule) 100 Mg Capsule, 1 TAB PO BID WITH MEALS Prescribed by: JOB LUNDBERG on 07/29/21 1228 [place] 3 Polyunsat Fatty Acids (Fish Oil 1,000 mg Capsule) 340 Mg-1,000 Mg Cap, 1,000 MG PO UD, (Reported) Entered as Reported by: MELONIE MARION on 07/24/21 163 Omeprazole (Omeprazole) 20 Mg Capsule.dr, 20 MG PO DAILY, (Reported) Entered as Reported by: MELONIE MARION on 07/24/21 163 Phenazopyridine HCl (Pyridium) 200 Mg Tablet, 1 TAB PO TID Prescribed by: JOB LUNDBERG on 07/29/21 1228 Ropinirole HCl (Ropinirole HCl) 2 Mg Tablet, 2 MG PO HS, (Reported) Entered as Reported by: MELONIE MARION on 07/24/21 163 Tamsulosin HCl (Flomax) 0.4 Mg Cap, 0.4 MG PO DAILY, (Reported) Entered as Reported by: MELONIE MARION on 07/24/211632 Tiotropium [place] (Spiriva) 18 Mcg Aerp, 1 INH IH DAILY, (Reported) Entered as Reported by: MELONIE MARION on 07/24/21 163 Torsemide (Torsemide) 20 Mg Tablet, 20 MG PO DAILY, (Reported) Entered as Reported by: MELONIE MARION on 07/24/21 163 Review of Systems Review of Systems Constitutional: see HPI Past Ilxzvxn-Fnjltk-Clkdwt Hx Immunizations Up To Date Tetanus Booster (TDap): Less than 5yrs First/Initial COVID19 Vaccinat: 2020 Second COVID19 Vaccination Naveen: 2020 Third COVID19 Vaccination Date: 03/12/21 Seasonal Allergies Seasonal Allergies: Yes Past Medical History Surgery/Hospitalization HX: COPD, KIDNEY REMOVED, [facility] Surgeries: Yes (R PAROTID GLAND, BENIGN NECK TUMORS,PILONIDAL CYST,SKIN CA L FA/SKIN GRAFT) Respiratory: Yes (INHALERS, NEBULIZER USE) Asthma Currently Using CPAP: No Currently Using BIPAP: No Cardiac: Yes High Cholesterol, Hypertension Neurological: No Reproductive Disorders: No Sexually Transmitted Disease: No Genitourinary: Yes (RENAL LESION) Gastrointestinal: Yes Gastroesophageal Reflux, Hiatal Hernia Musculoskeletal: Yes (RESTLESS LEG SYNDROME; LEFT FOOT FRACTURE--NO SURGERY; ) Gout Endocrine: No HEENT: Yes (GLASSES) Cancer: Yes (SQUAMOUS CELL CA LEFT FOREARM) Skin Did You Recieve Any Treatments: Yes What Type of Treatment Did You: Surgical Intervention Psychosocial: Yes Anxiety, Depression Integumentary: Yes (SKIN CANCER) Blood Disorders: No Physical Exam Vital Signs - First Documented 11/24/22 11/24/22 11/24/22 12:14 12:43 16:05 Temp 36.9 Pulse 91 Resp 26 B/P (MAP) 126/74 (91) Pulse Ox 97 O2 Delivery Room Air O2 Flow Rate 3.00 Capillary Refill : Height: 5'11" Weight: 273lbs. 0.0oz. 123.507995ax; 36.00 BMI Method:Actual General Appearance: moderate distress Neck: supple, normal inspection Respiratory: chest non-tender, respiratory distress, wheezing Cardiovascular: regular rate, rhythm Extremities: normal range of motion, normal inspection, no pedal edema Neurologic/Psychiatric: alert, normal mood/affect Skin: normal color, warm/dry Focused Exam Lactate Level 11/24/22 12:45: Lactic Acid Level 1.07 Lactic Acid Level Laboratory Tests Test 11/24/22 12:45 Lactic Acid Level 1.07 MMOL/L (0.50-2.00) Procedures/Interventions Suture Size: 5-0 Progress/Results/Core Measures Suspected Sepsis SIRS Temperature: Pulse: Respiratory Rate: Laboratory Tests 11/24/22 12:20: White Blood Count 3.1L Blood Pressure / Mean: 11/24/22 12:45: Lactic Acid Level 1.07 Laboratory Tests 11/24/22 12:20: Creatinine 4.79H, INR Comment 0.9, Platelet Count 153, Total Bilirubin 0.3 Results/Orders Lab Results Laboratory Tests Test 11/24/22 12:20 11/24/22 12:40 11/24/22 12:45 Range/Units White Blood Count 3.1 L 4.3-11.0 10^3/uL Red Blood Count 4.75 4.30-5.52 10^6/uL Hemoglobin 15.0 13.3-17.7 g/dL Hematocrit 45 40-54 % Mean Corpuscular Volume 94 80-99 fL Mean Corpuscular Hemoglobin 32 25-34 pg Mean Corpuscular Hemoglobin Concent 34 32-36 g/dL Red Cell Distribution Width 14.1 10.0-14.5 % Platelet Count 153 130-400 10^3/uL Mean Platelet Volume 10.7 9.0-12.2 fL Immature Granulocyte % (Auto) 1 % Neutrophils (%) (Auto) 76 H 42-75 % Lymphocytes (%) (Auto) 9 L 12-44 % Monocytes (%) (Auto) 14 H 0-12 % Eosinophils (%) (Auto) 0 0-10 % Basophils (%) (Auto) 0 0-10 % Neutrophils # (Auto) 2.4 1.8-7.8 10^3/uL Lymphocytes # (Auto) 0.3 L 1.0-4.0 10^3/uL Monocytes # (Auto) 0.4 0.0-1.0 10^3/uL Eosinophils # (Auto) 0.0 0.0-0.3 10^3/uL Basophils # (Auto) 0.0 0.0-0.1 10^3/uL Immature Granulocyte # (Auto) 0.0 0.0-0.1 10^3/uL Prothrombin Time 12.8 12.2-14.7 SEC INR Comment 0.9 0.8-1.4 Activated Partial Thromboplast Time 36 H 24-35 SEC D-Dimer 1.24 H 0.00-0.49 UG/ML Sodium Level 137 135-145 MMOL/L Potassium Level 2.9 L 3.6-5.0 MMOL/L Chloride Level 87 L 98-107 MMOL/L Carbon Dioxide Level 33 H 21-32 MMOL/L Anion Gap 17 H 5-14 MMOL/L Blood Urea Nitrogen 90 H 7-18 MG/DL Creatinine 4.79 H 0.60-1.30 MG/DL Estimat Glomerular Filtration Rate 13 BUN/Creatinine Ratio 19 Glucose Level 117 H 70-105 MG/DL Calcium Level 8.9 8.5-10.1 MG/DL Corrected Calcium 8.9 8.5-10.1 MG/DL Magnesium Level 1.8 1.6-2.4 MG/DL Total Bilirubin 0.3 0.1-1.0 MG/DL Aspartate Amino Transf (AST/SGOT) 44 H 5-34 U/L Alanine Aminotransferase (ALT/SGPT) 28 0-55 U/L Alkaline Phosphatase 63 40-136 U/L Troponin I 0.086 H <0.028 NG/ML B-Type Natriuretic Peptide 21.9 <100.0 PG/ML Total Protein 7.0 6.4-8.2 GM/DL Albumin 4.0 3.2-4.5 GM/DL Blood Gas Puncture Site R RAD Blood Gas Patient Temperature 36.7 Arterial Blood pH 7.48 H 7.37-7.43 Arterial Blood Partial Pressure CO2 50 H 35-45 MMHG Arterial Blood Partial Pressure O2 45 L 79-93 MMHG Arterial Blood HCO3 37 H 23-27 MMOL/L Arterial Blood Total CO2 38.7 H 21.0-31.0 MMOL/L Arterial Blood Oxygen Saturation 81 L 94-100 % Arterial Blood Base Excess 12.7 H -2.5-2.5 MMOL/L [place] Test YES-POS Blood Gas Ventilator Setting NO Blood Gas Inspired Oxygen ROOM AIR Influenza Type A (RT-PCR) Not Detected Not Detecte Influenza Type B (RT-PCR) Not Detected Not Detecte SARS-CoV-2 RNA (RT-PCR) Not Detected Not Detecte Lactic Acid Level 1.07 0.50-2.00 MMOL/L My Orders Orders - SARAHSONIDO R 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 Cbc With Automated Diff (11/24/22 12:20) Magnesium (11/24/22 12:20) Chest 1 View, Ap/Pa Only (11/24/22 12:20) Ekg Tracing (11/24/22 12:20) Comprehensive Metabolic Panel (11/24/22 12:20) Protime With Inr (11/24/22 12:20) Partial Thromboplastin Time (11/24/22 12:20) Monitor-Rhythm Ecg Trace Only (11/24/22 12:20) Ed Iv/Invasive Line Start (11/24/22 12:20) Bnp [place]vin (11/24/22 12:20) Troponin I [place] (11/24/22 12:20) Dexamethasone Injection (Dexamethasone (11/24/22 12:30) Ipratropium/Albuterol Inh Soln (Ipratrop (11/24/22 12:30) Svn Small Volume Nebulizer (11/24/22 12:22) Covid 19 Inhouse Test (11/24/22 12:26) Influenza A And B By Pcr (11/24/22 12:26) Blood Culture (11/24/22 12:28) Lactic Acid Analyzer (11/24/22 12:28) Arterial Blood Gas (11/24/22 12:42) Fibrin Degradation Products (11/24/22 13:57) Enoxaparin Injection (Enoxaparin Injecti (11/24/22 14:45) Hydroxyzine Oral (Hydroxyzine Oral) (11/24/22 14:45) Ed Admission (Communication) (11/24/22 14:45) Lung Scan Perfusion (11/24/22 14:39) Medications Given in ED Vital Signs/I&O 11/24/22 11/24/22 11/24/22 11/24/22 12:14 12:15 12:43 16:05 Temp 36.9 36.0 Pulse 91 96 Resp 26 13 B/P (MAP) 126/74 (91) 137/70 Pulse Ox 97 100 O2 Delivery Room Air Room Air Room Air Nasal Cannula O2 Flow Rate 3.00 Capillary Refill : Progress Note : Progress Note Patient seen and evaluated, lying in bed, moderate respiratory distress. Based on exam and symptoms, differential diagnoses include but is not limited to pneumonia, chronic kidney disease, heart failure, COPD exacerbation. PE. Work- up initiated including CBC, CMP, coags, troponin, BNP, ABG, COVID and flu swab, D-dimer, EKG, chest x-ray. 1431 Labs and imaging reviewed. CBC shows decreased WBC 3.1, neutrophil percentage slightly elevated 76. CMP shows decreased potassium 2.9, decreased chloride 87, elevated 33, slightly elevated anion gap 17. BUN elevated 90, and creatinine elevated 4.79, 413. Troponin elevated 0.086. BNP normal. Lactic acid normal. Blood gas shows elevated pH 7.48, elevated CO2 50, decreased PO2 45, elevated HCO3 37, oxygen saturation 81%. D-dimer elevated 1.24. COVID and flu negative. Chest x-ray negative for acute cardiopulmonary process. Patient appears better, respiratory rate has decreased. Patient is alert and oriented at this time, quick to answer questions, does not seem confused. Patient's states that his confusion is much improved. Based on lab work and initial presentation, I believe patient needs to be admitted. Patient will also need a VQ scan for elevated D-dimer. I called and spoke with Dr. Patton, hospitalist, she agrees to admit for observation to cardiac stepdown. She would also like patient to have a VQ scan. She would like me to call and speak with cardiology. 1436 I called and spoke with Dr. Bermeo, cardiology, regarding patient. He would like a 3-hour troponin, Lovenox, and an echo ordered. Plan of care discussed with patient and . Patient agrees to be admitted. Patient requesting something for agitation/anxiety. Hydroxyzine ordered. ECG Initial ECG Impression Date: Nov 24, 2022 Initial ECG Impression Time: 12:27 Initial ECG Rate: 93 Initial ECG Rhythm: Normal Sinus Initial ECG Intervals: Normal Initial ECG Impression: Nonspecific Changes Initial ECG Comparisson: Changed Diagnostic Imaging Diagonstic Imaging: Xray Plain Films/CT/US/NM/MRI: chest [facility] [place] [place] NAME: GABBY ROMERO [facility] REC#: [id number] PT STATUS: REG ER : 1960 PHYSICIAN: SONIDO SMITH APRN ADMIT DATE: 11/24/22/ER Signed Date of Exam:11/24/22 CHEST 1 VIEW, AP/PA ONLY CHEST 1 VIEW, AP/PA ONLY Indication: Chest pain. Comparison: 11/05/2014 Findings: No focal airspace disease in the visualized lungs. No pleural effusion or pneumothorax. Normal cardiomediastinal silhouette. Impression: 1. No acute cardiopulmonary process by portable radiography. Dictated by: Dictated on workstation # [id number] Dict: 11/24/22 1337 Trans: 11/24/22 1337 [facility] [id number] Interpreted by: BON MILLER MD Electronically signed by: BON MILLER MD 11/24/22 1337 Departure Communication (Admissions) Time/Spoke to Admitting Phy: 14:31 Dr. Patton, hospitalist, see progress note. Time/Spoke to Consulting Phy: 14:36 Dr. Bermeo, cardiology, see progress note. Impression Primary Impression: Acute respiratory failure Additional Impressions: COPD exacerbation Hypokalemia Elevated d-dimer Elevated troponin Disposition: ADMITTED INPATIENT Condition: Stable Admissions Decision to Admit Reason: Admit from ER (General) Decision to Admit/Date: Nov 24, 2022 Time/Decision to Admit Time: 14:31 Departure-Patient Inst. Referrals: MORALES NOGUEIRA MD (PCP/Family) Primary Care Physician SONIDO SMITH APRN Nov 24, 2022 12:26
[2022-11-24] MEDS ORDERED: dexAMETHasone INJ 10 MG/ML 1 ML VIAL IV ONE (12:30)
[2022-11-24] MEDS ORDERED: RT-Ipratropium/Albuterol NEB 3 ML VIAL INH ONE (12:30)
[2022-11-24 12:39] LABS: BASOPHILS % (AUTO) 0 % (0-10); EOSINOPHILS % (AUTO) 0 % (0-10); HEMATOCRIT 45 % (40-54); LYMPHOCYTES # (AUTO) 0.3 10^3/uL (1.0-4.0); LYMPHOCYTES % (AUTO) 9 % (12-44); MEAN CORPUSCULAR HEMOGLOBIN 32 pg (25-34); MEAN CORPUSCULAR HGB CONC 34 g/dL (32-36); MEAN CORPUSCULAR VOLUME 94 fL (80-99); MEAN PLATELET VOLUME 10.7 fL (9.0-12.2); MONOCYTES # (AUTO) 0.4 10^3/uL (0.0-1.0); MONOCYTES % (AUTO) 14 % (0-12); NEUTROPHILS # (AUTO) 2.4 10^3/uL (1.8-7.8); NEUTROPHILS % (AUTO) 76 % (42-75); PLATELET COUNT 153 10^3/uL (130-400); WHITE BLOOD COUNT 3.1 10^3/uL (4.3-11.0)
[2022-11-24 12:49] LABS: INR 0.9 (0.8-1.4); PROTHROMBIN TIME PATIENT 12.8 SEC (12.2-14.7)
[2022-11-24 12:54] LABS: ABG BASE EXCESS 12.7 MMOL/L (-2.5-2.5); ABG OXYGEN SATURATION 81 % (94-100); ABG PCO2 50 MMHG (35-45); ABG PH 7.48 (7.37-7.43); ABG PO2 45 MMHG (79-93); ABG TCO2 38.7 MMOL/L (21.0-31.0)
[2022-11-24 12:55] LABS: ALLENS TEST YES-POS; INSPIRED O2 ROOM AIR; PATIENT TEMP 36.7; VENTILATOR NO
[2022-11-24 12:56] LABS: BILIRUBIN,TOTAL 0.3 MG/DL (0.1-1.0); CALCIUM 8.9 MG/DL (8.5-10.1); CREATININE SERUM 4.79 MG/DL (0.60-1.30); MAGNESIUM 1.8 MG/DL (1.6-2.4); POTASSIUM 2.9 MMOL/L (3.6-5.0)
--- NOTE | 2022-11-24 13:38 | Diagnostic Imaging Report ---
CHEST 1 VIEW, AP/PA ONLY Indication: Chest pain. Comparison: 11/05/2014 Findings: No focal airspace disease in the visualized lungs. No pleural effusion or pneumothorax. Normal cardiomediastinal silhouette. Impression: 1. No acute cardiopulmonary process by portable radiography. Dictated by: Dictated on workstation # [id number]
[2022-11-24] MEDS ORDERED: hydrOXYzine 25 MG CAPSULE PO ONE (14:45)
[2022-11-24] MEDS ORDERED: ENOXAPARIN 100 MG/1 ML SYRINGE SC ONE (14:45)
[2022-11-24 16:30] VITALS: BP 135/78
[2022-11-24] MEDS ORDERED: MELATONIN 3 MG TABLET PO PRN (16:30)
[2022-11-24] MEDS ORDERED: ONDANSETRON INJECTION 4 MG/2 ML (SDV) IV PRN (16:30)
[2022-11-24] MEDS ORDERED: ONDANSETRON 4 MG ORAL DISSOLVE TABLET PO PRN (16:30)
[2022-11-24] MEDS ORDERED: ANTACID SUSPENSION 30 ML UDC PO PRN (16:30)
[2022-11-24] MEDS ORDERED: CALCIUM CARBONATE 500 MG CHEW TABLET PO PRN (16:30)
[2022-11-24] MEDS ORDERED: PATIENT MAY USE OWN MEDS, ALL PO SCH (16:30)
[2022-11-24] MEDS ORDERED: ACETAMINOPHEN 325 MG TABLET PO PRN (16:30)
[2022-11-24] MEDS: NS IV 1000 ML 1,000 ML IV SCH (16:41)
[2022-11-24 16:47] VITALS: BP 137/70
--- NOTE | 2022-11-24 16:51 | Consultation-Cardiology ---
HPI-Cardiology Cardiology Consultation: Date of Consultation 11/24/22 Date of Admission Attending Physician Eduardo Owens MD Admitting Physician Admitting Physician: Daksha Patton MD Attending Physician: Daksha Patton MD Consulting Physician Sophia DOTSON MD HPI: Time Seen by a Provider: 16:00 Chief Complaint: Shortness of breath This is a 61-year-old gentleman who presents with shortness of breath and hypoxia. He was recently being treated for pneumonia. Confusion, decreased urinary output and intake. Patient has a single kidney and chronic kidney disease. She follows with nephrology both at [facility] as well as . Patient was still short of breath when I saw him in the ER. He was not very clear with his answers. The answered most of the questions. Review of Systems-Cardiology Review of Systems Constitutional: tiredness Eyes: no symptoms reported Ears/Nose/Throat: no symptoms reported Respiratory: shortness of breath Cardiovascular: other (Shortness of breath) Gastrointestinal: poor fluid intake Genitourinary: other (Decreased urine output) Musculoskeletal: no symptoms reported Skin: no symptoms reported Psychiatric/Neurological: other (Confusion) Hematologic: no symptoms reported GPR-Ejqfcn-Lnvezg Hx Patient Social History Smoking Status: Former Smoker Former smoker/When Quit: Mar 22, 1977 Alcohol Use?: No Substance type: Marijuana Pt feels they are or have been: Yes Immunizations Up To Date Tetanus Booster (TDap): Less than 5yrs Date of Pneumonia Vaccine: Jan 04, 2010 Date of Influenza Vaccine: Jan 04, 2021 Past Medical History PMH As described under Assessment. Allergies and Home Medications Allergies Coded Allergies: bacitracin (Verified Allergy, Unknown, 09/26/22) neomycin (Verified Allergy, Unknown, 09/26/22) polymyxin B (Verified Allergy, Unknown, 09/26/22) Patient Home Medication List Home Medication List Reviewed: Yes Acetaminophen (Tylenol) 325 Mg Capsule, 650 MG PO DAILY, (Reported) Entered as Reported by: MELONIE MARION on 07/24/21 163 Albuterol Sulfate (Albuterol Sulfate) 2.5 Mg/0.5 Ml Vial.neb, 2.5 MG INH DAILY PRN, (Reported) Entered as Reported by: MELONIE MARION on 07/24/21 6845 Allopurinol (Allopurinol) 300 Mg Tablet, 300 MG PO DAILY, (Reported) Entered as Reported by: MELONIE MARION on 07/24/21 1633 Amlodipine Besylate (Amlodipine Besylate) 10 Mg Tablet, 10 MG PO DAILY, (Reported) Entered as Reported by: MELONIE MARION on 07/24/21 1633 Budesonide/Formoterol Fumarate (Symbicort 160-4.5 Mcg Inhaler) 160 Mcg-4.5 Mcg/Actuation Hfa.aer.ad, 2 PUFF IH HS, (Reported) Entered as Reported by: MELONIE MARION on 07/24/21 1633 Cephalexin (Cephalexin) 500 Mg Tablet, 500 MG PO TID Prescribed by: JEANETH KENNY on 09/26/22 1412 Cholecalciferol (Vitamin D3) (Vitamin D3) 125 Mcg (5000 Unit) Tablet, 125 MCG PO DAILY, (Reported) Entered as Reported by: MELONIE MARION on 07/24/21 1633 Duloxetine HCl (Duloxetine HCl) 60 Mg Capsule.dr, 60 MG PO DAILY, (Reported) Entered as Reported by: JOB LUNDBERG on 07/29/21 0926 Fesoterodine Fumarate (Toviaz) 4 Mg Tab.sr.24h, 2 MG PO HS, (Reported) Entered as Reported by: MELONIE MARION on 07/24/21 1633 Gabapentin (Gabapentin) 600 Mg Tablet, 600 MG PO BID, (Reported) Entered as Reported by: MELONIE MARION on 07/24/21 163 Lisinopril (Lisinopril) 20 Mg Tablet, 20 MG PO DAILY, (Reported) Entered as Reported by: MELONIE MARION on 07/24/21 1633 Mupirocin (Mupirocin) 2 % Oint...g., 1 EACH TP TID Prescribed by: JEANETH KENNY on 09/26/22 1412 Nitrofurantoin Monohyd/M-Cryst (Macrobid 100 mg Capsule) 100 Mg Capsule, 1 TAB PO BID WITH MEALS Prescribed by: JOB LUNDBERG on 07/29/21 1228 [place] 3 Polyunsat Fatty Acids (Fish Oil 1,000 mg Capsule) 340 Mg-1,000 Mg Cap, 1,000 MG PO UD, (Reported) Entered as Reported by: MELONIE MARION on 07/24/21 1633 Omeprazole (Omeprazole) 20 Mg Capsule.dr, 20 MG PO DAILY, (Reported) Entered as Reported by: MELONIE MARION on 07/24/21 1633 Phenazopyridine HCl (Pyridium) 200 Mg Tablet, 1 TAB PO TID Prescribed by: JOB LUNDBERG on 07/29/21 1228 Ropinirole HCl (Ropinirole HCl) 2 Mg Tablet, 2 MG PO HS, (Reported) Entered as Reported by: MELONIE MARION on 07/24/21 1633 Tamsulosin HCl (Flomax) 0.4 Mg Cap, 0.4 MG PO DAILY, (Reported) Entered as Reported by: MELONIE MARION on 07/24/21 163 Tiotropium [place] (Spiriva) 18 Mcg Aerp, 1 INH IH DAILY, (Reported) Entered as Reported by: MELONIE MARION on 07/24/21 163 Torsemide (Torsemide) 20 Mg Tablet, 20 MG PO DAILY, (Reported) Entered as Reported by: MELONIE MARION on 07/24/21 1633 Exam Vital Signs Vital Signs Date Time Temp Pulse Resp B/P (MAP) Pulse Ox O2 Delivery O2 Flow Rate FiO2 11/24/22 16:30 37.0 90 17 135/78 (97) 97 Nasal Cannula 3.00 Physical Exam Constitutional: Mild respiratory distress. Chest:coarse breath sounds CVS: regular rate and rhythm. no significant murmur Neuro: moving all four limbs. Labs Laboratory Tests Test 11/24/22 12:20 11/24/22 12:40 11/24/22 12:45 Range/Units White Blood Count 3.1 L 4.3-11.0 10^3/uL Red Blood Count 4.75 4.30-5.52 10^6/uL Hemoglobin 15.0 13.3-17.7 g/dL Hematocrit 45 40-54 % Mean Corpuscular Volume 94 80-99 fL Mean Corpuscular Hemoglobin 32 25-34 pg Mean Corpuscular Hemoglobin Concent 34 32-36 g/dL Red Cell Distribution Width 14.1 10.0-14.5 % Platelet Count 153 130-400 10^3/uL Mean Platelet Volume 10.7 9.0-12.2 fL Immature Granulocyte % (Auto) 1 % Neutrophils (%) (Auto) 76 H 42-75 % Lymphocytes (%) (Auto) 9 L 12-44 % Monocytes (%) (Auto) 14 H 0-12 % Eosinophils (%) (Auto) 0 0-10 % Basophils (%) (Auto) 0 0-10 % Neutrophils # (Auto) 2.4 1.8-7.8 10^3/uL Lymphocytes # (Auto) 0.3 L 1.0-4.0 10^3/uL Monocytes # (Auto) 0.4 0.0-1.0 10^3/uL Eosinophils # (Auto) 0.0 0.0-0.3 10^3/uL Basophils # (Auto) 0.0 0.0-0.1 10^3/uL Immature Granulocyte # (Auto) 0.0 0.0-0.1 10^3/uL Prothrombin Time 12.8 12.2-14.7 SEC INR Comment 0.9 0.8-1.4 Activated Partial Thromboplast Time 36 H 24-35 SEC D-Dimer 1.24 H 0.00-0.49 UG/ML Sodium Level 137 135-145 MMOL/L Potassium Level 2.9 L 3.6-5.0 MMOL/L Chloride Level 87 L 98-107 MMOL/L Carbon Dioxide Level 33 H 21-32 MMOL/L Anion Gap 17 H 5-14 MMOL/L Blood Urea Nitrogen 90 H 7-18 MG/DL Creatinine 4.79 H 0.60-1.30 MG/DL Estimat Glomerular Filtration Rate 13 BUN/Creatinine Ratio 19 Glucose Level 117 H 70-105 MG/DL Calcium Level 8.9 8.5-10.1 MG/DL Corrected Calcium 8.9 8.5-10.1 MG/DL Magnesium Level 1.8 1.6-2.4 MG/DL Total Bilirubin 0.3 0.1-1.0 MG/DL Aspartate Amino Transf (AST/SGOT) 44 H 5-34 U/L Alanine Aminotransferase (ALT/SGPT) 28 0-55 U/L Alkaline Phosphatase 63 40-136 U/L Troponin I 0.086 H <0.028 NG/ML B-Type Natriuretic Peptide 21.9 <100.0 PG/ML Total Protein 7.0 6.4-8.2 GM/DL Albumin 4.0 3.2-4.5 GM/DL Blood Gas Puncture Site R RAD Blood Gas Patient Temperature 36.7 Arterial Blood pH 7.48 H 7.37-7.43 Arterial Blood Partial Pressure CO2 50 H 35-45 MMHG Arterial Blood Partial Pressure O2 45 L 79-93 MMHG Arterial Blood HCO3 37 H 23-27 MMOL/L Arterial Blood Total CO2 38.7 H 21.0-31.0 MMOL/L Arterial Blood Oxygen Saturation 81 L 94-100 % Arterial Blood Base Excess 12.7 H -2.5-2.5 MMOL/L Charles Test YES-POS Blood Gas Ventilator Setting NO Blood Gas Inspired Oxygen ROOM AIR Influenza Type A (RT-PCR) Not Detected Not Detecte Influenza Type B (RT-PCR) Not Detected Not Detecte SARS-CoV-2 RNA (RT-PCR) Not Detected Not Detecte Lactic Acid Level 1.07 0.50-2.00 MMOL/L ECG Impression ECG Initial ECG Rhythm: Normal Sinus Initial ECG Impression: Normal A/P-Cardiology Assessment/Admission Diagnosis acute respiratory failure, unlikely CHF single kidney, CKD 4 borderline positive troponin negative BNP Plan acute respiratory failure, defer to primary team. Positive DDimer. will likely require V/Q scan. treat as PE for now but will defer to the primary team. unlikely CHF, negative BNP. single kidney, CKD 4. Cr 4. borderline positive troponin; recommend serial troponin. likely Type II ID due to respiratory failure. negative BNP Sophia DOTSON MD Nov 24, 2022 16:51
[2022-11-24] MEDS ORDERED: RT-Ipratropium/Albuterol NEB 3 ML VIAL INH PRN (17:00)
[2022-11-24] MEDS ORDERED: RT-ALBUTEROL SULF 2.5 MG/3 ML PRE-MIX VIAL INH SCH ×2 (18:00→22:00)
--- NOTE | 2022-11-24 18:27 | Diagnostic Imaging Report ---
INDICATION: Shortness of air and elevated D-dimer, acute respiratory failure. The patient was administered 5.3 mCi technetium 99m MAA intravenously and imaging over the chest was performed in multiple obliquities. There is homogeneous perfusion to both lungs. No pleural-based perfusion defects are identified. IMPRESSION: Normal perfusion scan. Dictated by: Dictated on workstation # [id number]
[2022-11-24] MEDS: hydrOXYzine 10 MG TABLET PO PRN ×2 (18:33→21:51)
[2022-11-24] MEDS ORDERED: NS IV 500 ML 500 ML IV PRN (19:30)
[2022-11-24] MEDS ORDERED: POTASSIUM CHLORIDE 20 MEQ TABLET PO NR ×2 (19:30→21:00)
[2022-11-24] MEDS ORDERED: RT-Ipratropium/Albuterol NEB 3 ML VIAL IH SCH (20:00)
[2022-11-24 20:31] VITALS: BP 125/84
[2022-11-24] MEDS: RT-Ipratropium/Albuterol NEB 3 ML VIAL INH SCH (21:35)
[2022-11-25] VITALS: BP 121/74
[2022-11-25] MEDS: NS IV 1000 ML 1,000 ML IV SCH ×2 (01:30→08:54)
[2022-11-25] MEDS: RT-Ipratropium/Albuterol NEB 3 ML VIAL INH SCH ×6 (02:19→23:39)
[2022-11-25 03:43] VITALS: BP 111/72
[2022-11-25 05:43] LABS: HEMATOCRIT 43 % (40-54); HEMOGLOBIN 14.1 g/dL (13.3-17.7); MEAN CORPUSCULAR HEMOGLOBIN 31 pg (25-34); MEAN CORPUSCULAR HGB CONC 33 g/dL (32-36); MEAN CORPUSCULAR VOLUME 94 fL (80-99); MEAN PLATELET VOLUME 11.7 fL (9.0-12.2); PLATELET COUNT 137 10^3/uL (130-400); WHITE BLOOD COUNT 2.5 10^3/uL (4.3-11.0)
[2022-11-25 06:17] LABS: CALCIUM 8.9 MG/DL (8.5-10.1); CREATININE SERUM 4.55 MG/DL (0.60-1.30); POTASSIUM 3.2 MMOL/L (3.6-5.0)
[2022-11-25] MEDS: MAGNESIUM 1 GM/100 ML IVPB 100 ML IV SCH (06:22)
[2022-11-25] MEDS: POTASSIUM CL 10MEQ/50ML IVPB 50 ML IV SCH (06:22)
[2022-11-25] MEDS: POTASSIUM CHLORIDE 20 MEQ TABLET PO SCH (06:22)
[2022-11-25 08:30] VITALS: BP 140/73
[2022-11-25] MEDS: predniSONE 20 MG TABLET PO SCH (08:55)
[2022-11-25] MEDS ORDERED: POTASSIUM CHLORIDE 20 MEQ TABLET PO ONE ×2 (09:00→11:00)
--- NOTE | 2022-11-25 09:51 | History & Physical-Hospitalist ---
History of Present Illness HPI/Chief Complaint Pt is a 61-year-old male with past medical history of COPD, HTN, BPH who presented to the ER due to shortness of breath. He was recently treated with abx for a pneumonia but over the weekend continued to feel worse. He was more short of breath and was not eating or drinking well. He was seen by his PCP yesterday and referred to the ER due to hypoxia. On arrival here he was still hypoxic and was wheezing significantly and requiring supplemental oxygen to keep his sats up. He was also found to have a slightly elevated troponin so was admitted to hospital. This morning he reports feeling much better. He is breathing better and has no chest pain. He is still on oxygen and wheezing slightly but overall much better. Source: patient, family, spouse Date Seen 11/25/22 Time Seen by a Provider: 08:00 Attending Physician Eduardo Owens MD PCP Admitting Physician: Jose Patton MD Attending Physician: Jose Patton MD Referring Physician Date of Admission Nov 24, 2022 at 16:07 Home Medications & Allergies Home Medications Reviewed patient Home Medication Reconciliation performed by pharmacy medication reconciliations optoelectronic technician and/or nursing. Patients Allergies have been reviewed. Allergies Allergies Coded Allergies bacitracin (Verified Allergy, Unknown, 09/26/22) neomycin (Verified Allergy, Unknown, 09/26/22) polymyxin B (Verified Allergy, Unknown, 09/26/22) Past Rvvwpsa-Uqepcb-Ktehoo Hx Patient Social History Marrital Status: Tobacco Use?: No Smoking Status: Former Smoker Use of E-Cig and/or Vaping dev: No Substance use?: Yes Substance type: Marijuana Substance frequency: Once in a while Alcohol Use?: No Pt feels they are or have been: Yes Immunizations Up To Date Date of Influenza Vaccine: Jan 04, 2021 First/Initial COVID19 Vaccinat: 2020 Second COVID19 Vaccination Naveen: 2020 Tetanus Booster (TDap): Less Than 5 Years Date of Pneumonia Vaccine: Jan 04, 2010 Seasonal Allergies Seasonal Allergies: Yes Current Status Advance Directives: No Advance Directive Location: Home Communicates: Verbally Primary Language: Macanese Preferred Spoken Language: Macanese Is interpretation needed?: No Implanted or Applied Medical D: None Past Medical History Asthma Currently Using CPAP: No Currently Using BIPAP: No High Cholesterol, Hypertension Sexually Transmitted Disease: No Gastroesophageal Reflux, Hiatal Hernia Gout Skin Did You Recieve Any Treatments: Yes What Type of Treatment Did You: Surgical Intervention Anxiety, Depression Blood Disorders: No Review of Systems Constitutional: see HPI Physical Exam Physical Exam Vital Signs Vital Signs - First Documented 11/24/22 11/24/22 11/24/22 11/24/22 12:14 12:43 16:05 16:47 Temp 36.9 Pulse 91 Resp 26 B/P (MAP) 126/74 (91) Pulse Ox 97 O2 Delivery Room Air O2 Flow Rate 3.00 FiO2 32 Capillary Refill : Height, Weight, BMI Height: 5'11" Weight: 273lbs. 0.0oz. 123.201391vm; 36.93 BMI Method:Actual General Appearance: No Apparent Distress, Chronically ill, Obese Respiratory: No Respiratory Distress, Wheezing, Other (on oxygen) Cardiovascular: Regular Rate, Rhythm, No Murmur Gastrointestinal: Normal Bowel Sounds, Soft Neurologic/Psychiatric: Alert, Oriented x3, Normal Mood/Affect Results Results/Procedures Labs Laboratory Tests 11/24/22 12:20 11/25/22 05:15 Patient resulted labs reviewed. Imaging: Reviewed Imaging Report [facility] [place] [place] NAME: GABBY ROMERO [facility] REC#: [id number] PT STATUS: REG ER : 1960 PHYSICIAN: SONIDO SMITH APRN ADMIT DATE: 11/24/22/ER Signed Date of Exam:11/24/22 CHEST 1 VIEW, AP/PA ONLY CHEST 1 VIEW, AP/PA ONLY Indication: Chest pain. Comparison: 11/05/2014 Findings: No focal airspace disease in the visualized lungs. No pleural effusion or pneumothorax. Normal cardiomediastinal silhouette. Impression: 1. No acute cardiopulmonary process by portable radiography. Dictated by: Dictated on workstation # [id number] Dict: 11/24/221336 Trans: 11/24/221336 [facility] [id number] Interpreted by: BON MILLER MD Electronically signed by: BON MILLER MD 11/24/227 [facility] [place] NAME: GABBY ROMERO [facility] REC#: [id number] PT STATUS: ADM Alice : 1960 PHYSICIAN: SONIDO SMITH APRN ADMIT DATE: 11/24/22/[facility] Signed Date of Exam:11/24/22 LUNG SCAN PERFUSION INDICATION: Shortness of air and elevated D-dimer, acute respiratory failure. The patient was administered 5.3 mCi technetium 99m MAA intravenously and imaging over the chest was performed in multiple obliquities. There is homogeneous perfusion to both lungs. No pleural-based perfusion defects are identified. IMPRESSION: Normal perfusion scan. Dictated by: Dictated on workstation # [id number] Dict: 11/24/224 Trans: 11/24/221928 [facility] [id number] Interpreted by: RACHELL LANDERS MD Electronically signed by: RACHELL LANDERS MD 11/24/221928 Assessment/Plan Admission Diagnosis COPD Exacerbation Admission Status: Inpatient Order (span 2 midnights) Reason for Inpatient Admission: see below Assessment and Plan COPD Exacerbation Continue steroids MAT protocol WEan oxygen as able V/q Scan negative Elevated troponin Likely demand ischemia from hypoxia Cardiology consulted, appreciate recs CKD s/p nephrectomy hypokalemia Creatinine down to 4.55 this AM K 3.2- replace K HTN HLD Continue home meds when med rec done DVT ppx; Heparin Diagnosis/Problems Diagnosis/Problems (1) COPD exacerbation (2) Elevated troponin (3) Hypokalemia (4) Acute respiratory failure JOSE PATTON MD Nov 25, 2022 09:51
[2022-11-25 11:57] VITALS: BP 146/84
--- NOTE | 2022-11-25 15:22 | Cardiology Progress Note ---
Cardiology SOAP Progress Note Subjective: Improved shortness of breath. Objective: I&O/Vital Signs 11/25/22 11/25/22 11/25/22 11/25/22 03:43 07:00 07:44 08:00 Temp 36.7 Pulse 78 83 Resp 24 B/P (MAP) 111/72 (85) Pulse Ox 90 90 99 O2 Delivery Nasal Cannula Nasal Cannula Nasal Cannula O2 Flow Rate 3.00 2.00 3.00 11/25/22 11/25/22 11/25/22 11/25/22 08:30 10:38 11:57 12:21 Temp 36.8 36.6 Pulse 90 93 96 Resp 20 12 B/P (MAP) 140/73 (95) 146/84 (104) Pulse Ox 94 91 94 O2 Delivery Nasal Cannula Nasal Cannula O2 Flow Rate 3.00 2.00 11/25/22 14:29 Pulse Ox 92 O2 Delivery Nasal Cannula O2 Flow Rate 2.00 11/25/22 00:00 Intake Total 150 ml Balance 150 ml Weight (Pounds): 273 Weight (Ounces): 0.0 Weight (Calculated Kilograms): 123.614658 Constitutional: AAO x 3 Respiratory: other (Decreased breath sounds bilaterally) Cardiovascular: regular rate-rhythm, S1 and S2 Neurologic/Psychiatric: no motor/sensory deficits, alert, normal mood/affect, oriented x 3 Skin: normal color, warm/dry Results/Procedures: Labs Laboratory Tests 11/24/22 18:19: Troponin I 0.083H 11/25/22 05:15: Troponin I 0.089H, White Blood Count 2.5L, Red Blood Count 4.53, Hemoglobin 14.1, Hematocrit 43, Mean Corpuscular Volume 94, Mean Corpuscular Hemoglobin 31, Mean Corpuscular Hemoglobin Concent 33, Red Cell Distribution Width 14.2, Platelet Count 137, Mean Platelet Volume 11.7, Sodium Level 137, Potassium Level 3.2L, Chloride Level 92L, Carbon Dioxide Level 30, Anion Gap 15H, Blood Urea Nitrogen 92H, Creatinine 4.55H, Estimat Glomerular Filtration Rate 14, BUN/Creatinine Ratio 20, Glucose Level 161H, Calcium Level 8.9 Microbiology 11/24/22 Blood Culture - Preliminary, Resulted No growth A/P: Assessment/Dx: acute respiratory failure, unlikely CHF single kidney, CKD 4 borderline positive troponin negative BNP Plan: acute respiratory failure, defer to primary team. Positive DDimer. will likely require V/Q scan. treat as PE for now but will defer to the primary team. unlikely CHF, negative BNP. single kidney, CKD 4. Cr 4. borderline positive troponin; no significant upward trend of troponin. likely Type II NV due to respiratory failure. negative BNP Focused Exam Lactate Level 11/24/22 12:45: Lactic Acid Level 1.07 Sophia DOTSON MD Nov 25, 2022 15:22
[2022-11-25] MEDS ORDERED: SUVO5TAB2 PO (15:40)
[2022-11-25] MEDS ORDERED: PRAM0.128 PO (15:40)
[2022-11-25] MEDS ORDERED: ALLO100T PO (15:40)
[2022-11-25] MEDS ORDERED: RT-ALBUINH INH (15:40)
[2022-11-25] MEDS ORDERED: MIRA50TA PO (15:40)
[2022-11-25] MEDS ORDERED: GBPN600T PO (15:40)
[2022-11-25] MEDS ORDERED: CHLO25TA22 PO (15:40)
[2022-11-25] MEDS ORDERED: ATOR20TA66 PO (15:40)
[2022-11-25] MEDS ORDERED: OXYB10TA29 PO (15:40)
[2022-11-25] MEDS ORDERED: AMOX1TAB12 PO (15:40)
[2022-11-25] MEDS ORDERED: ALBU2.5V4 NEB (15:40)
[2022-11-25 16:00] VITALS: BP 119/68
[2022-11-25 20:00] VITALS: BP 127/82
[2022-11-25] MEDS ORDERED: FLUTICASONE/VILANTEROL 200/25 MCG (7 DOSES) IH SCH (20:00)
[2022-11-25] MEDS: GABAPENTIN 600 MG TABLET PO SCH ×2 (20:50→21:17)
[2022-11-25] MEDS: MIRABEGRON 25 MG TABLET PO SCH ×2 (20:50→21:17)
[2022-11-25] MEDS: OXYBUTYNIN 5 MG TABLET PO SCH ×2 (20:51→21:16)
[2022-11-25] MEDS: AMOXICILLIN/Clavulanate 875 MG TABLET PO SCH (20:54)
[2022-11-25] MEDS: PRAMIPEXOLE 0.125 MG TABLET PO SCH ×2 (20:54→21:17)
[2022-11-25] MEDS ORDERED: NON-FORMULARY MEDICATION 1 EA EA (Mirabegron (Myrbetriq) 50 MG) PO SCH (21:00)
[2022-11-25] MEDS ORDERED: SUVOREXANT 5 MG PO SCH (21:00)
[2022-11-25] MEDS ORDERED: NON-FORMULARY MEDICATION 1 EA EA (Oxybutynin Chloride (Oxybutynin Chloride ER) 10 MG) PO SCH (21:00)
[2022-11-25] MEDS ORDERED: NON-FORMULARY MEDICATION 1 EA EA (Budesonide/Formoterol Fumarate (Symbicort 160-4.5 Mcg In IH SCH (21:00)
[2022-11-26] MEDS: RT-Ipratropium/Albuterol NEB 3 ML VIAL INH SCH ×2 (02:46→07:04)
[2022-11-26 04:00] VITALS: BP 125/83
[2022-11-26 05:47] LABS: HEMATOCRIT 43 % (40-54); HEMOGLOBIN 14.3 g/dL (13.3-17.7); MEAN CORPUSCULAR HEMOGLOBIN 31 pg (25-34); MEAN CORPUSCULAR HGB CONC 33 g/dL (32-36); MEAN CORPUSCULAR VOLUME 94 fL (80-99); MEAN PLATELET VOLUME 11.5 fL (9.0-12.2); PLATELET COUNT 181 10^3/uL (130-400); WHITE BLOOD COUNT 4.6 10^3/uL (4.3-11.0)
[2022-11-26 06:05] LABS: CREATININE SERUM 4.32 MG/DL (0.60-1.30); POTASSIUM 3.4 MMOL/L (3.6-5.0)
[2022-11-26] MEDS: POTASSIUM CL 10MEQ/50ML IVPB 50 ML IV SCH (06:09)
[2022-11-26] MEDS: MAGNESIUM 1 GM/100 ML IVPB 100 ML IV SCH (06:09)
[2022-11-26] MEDS: POTASSIUM CHLORIDE 20 MEQ TABLET PO SCH (06:09)
[2022-11-26 08:00] VITALS: BP 142/92
[2022-11-26] MEDS ORDERED: GABAPENTIN 600 MG TABLET PO SCH (08:00)
[2022-11-26] MEDS ORDERED: GABAPENTIN 300 MG CAPSULE PO SCH (08:00)
--- NOTE | 2022-11-26 08:23 | Discharge Summary ---
Diagnosis/Chief Complaint Date of Admission Nov 24, 2022 at 16:07 Date of Discharge Admission Diagnosis COPD Exacerbation Primary Care Eduardo Owens MD Discharge Diagnosis (1) COPD exacerbation (2) Elevated troponin (3) Hypokalemia (4) Acute respiratory failure Discharge Summary Discharge Physical Exam Allergies: Coded Allergies: bacitracin (Verified Allergy, Unknown, 09/26/22) neomycin (Verified Allergy, Unknown, 09/26/22) polymyxin B (Verified Allergy, Unknown, 09/26/22) Vitals & I&Os Vital Signs Date Time Temp Pulse Resp B/P (MAP) Pulse Ox O2 Delivery O2 Flow Rate FiO2 11/26/22 12:00 99 19 94 11/26/22 10:03 Nasal Cannula 4.00 11/26/22 08:00 142/92 (109) 11/26/22 04:00 36.8 11/24/22 16:47 32 General Appearance: No Apparent Distress, Chronically ill Respiratory: No Accessory Muscle Use, No Respiratory Distress, Wheezing (scant- improved) Cardiovascular: Regular Rate, Rhythm, No Murmur Neurologic/Psychiatric: Alert, Oriented x3 Hospital Course Patient was admitted to the hospital secondary to COPD exacerbation following recent pneumonia diagnosis. He was continued on his antibiotics and treated with steroids. His symptoms improved significantly. He was requiring oxygen and patient reports he has required this in the past and thinks that he needs it again. He was tested for oxygen for home and was found to need 4lpm at rest and 5 with exertion. He was discharged home on a steroid taper and to complete his antibiotic course. He did have an elevation in his creatinine though it did improve and he had adequate urine output and he does follow with nephrology through [place]. He was advised to follow-up with Dr. Castillo regarding this. I called and spoke with his primary care nurse practitioner Di Gaines regarding this admission. He is to follow-up with her next week. He was discharged home at his request in stable and improved condition. Labs (last 24 hrs) Laboratory Tests 11/26/22 05:15: White Blood Count 4.6, Red Blood Count 4.58, Hemoglobin 14.3, Hematocrit 43, Mean Corpuscular Volume 94, Mean Corpuscular Hemoglobin 31, Mean Corpuscular Hemoglobin Concent 33, Red Cell Distribution Width 14.4, Platelet Count 181, Me an Platelet Volume 11.5, Sodium Level 139, Potassium Level 3.4L, Chloride Level 92L, Carbon Dioxide Level 32, Anion Gap 15H, Blood Urea Nitrogen 97H, Creatinine 4.32H, Estimat Glomerular Filtration Rate 15, BUN/Creatinine Ratio 22, Glucose Level 152H, Calcium Level 9.0 Microbiology 11/24/22 Blood Culture - Preliminary, Resulted No growth Patient resulted labs reviewed. Pending Labs Laboratory Tests 11/26/22 05:15: White Blood Count 4.6, Red Blood Count 4.58, Hemoglobin 14.3, Hematocrit 43, Mean Corpuscular Volume 94, Mean Corpuscular Hemoglobin 31, Mean Corpuscular Hemoglobin Concent 33, Red Cell Distribution Width 14.4, Platelet Count 181, Mean Platelet Volume 11.5, Sodium Level 139, Potassium Level 3.4, Chloride Level 92, Carbon Dioxide Level 32, Anion Gap 15, Blood Urea Nitrogen 97, Creatinine 4.32, Estimat Glomerular Filtration Rate 15, BUN/Creatinine Ratio 22, Glucose Level 152, Calcium Level 9.0 Imaging: Reviewed Imaging Report Discussion & Recommendations Discharge Planning: >30 minutes discharge planning Discharge Home Medications: Active Scripts Active Prednisone 10 Mg Tab.ds.pk 10 Mg PO DAILY Take 6 tabs(60mg)daily,decrease by 1 tab(10MG)daily. Reported Ventolin Hfa (Albuterol Sulfate) 1 Puff Puff 2 Puff INH Q4H PRN Albuterol Sulfate 2.5 Mg/3 Ml (0.083 %) Vial.neb 2.5 Mg NEB Q8H PRN Atorvastatin Calcium 20 Mg Tablet 20 Mg PO DAILY Allopurinol 100 Mg Tablet 100 Mg PO DAILY Chlorthalidone 25 Mg Tablet 25 Mg PO DAILY Belsomra (Suvorexant) 5 Mg Tablet 5 Mg PO HS Gabapentin 600 Mg Tablet 600 Mg PO HS Pramipexole Dihydrochloride (Pramipexole Di-HCl) 0.125 Mg Tablet 0.25 Mg PO HS TAKES 2 (0.125MG) TABS Myrbetriq (Mirabegron) 50 Mg Tab.er.24h 50 Mg PO HS Oxybutynin Chloride ER (Oxybutynin Chloride) 10 Mg Tab.er.24 10 Mg PO HS Amox Tr-K Clv 875-125 mg Tab (Amoxicillin/Potassium Clav) 875 Mg-125 Mg Tablet 1 Ea PO BID FILLED 11-19-2022 #20/10 DAY SUPPLY Duloxetine HCl 60 Mg Capsule.dr 60 Mg PO DAILY Symbicort 160-4.5 Mcg Inhaler (Budesonide/Formoterol Fumarate) 160 Mcg-4.5 Mcg/Actuation Hfa.aer.ad 2 Puff IH BID Vitamin D3 (Cholecalciferol (Vitamin D3)) 125 Mcg (5000 Unit) Tablet 125 Mcg PO DAILY Amlodipine Besylate 10 Mg Tablet 10 Mg PO DAILY Omeprazole 20 Mg Capsule.dr 20 Mg PO DAILY Torsemide 20 Mg Tablet 20 Mg PO BID Flomax (Tamsulosin HCl) 0.4 Mg Cap 0.4 Mg PO DAILY Gabapentin 600 Mg Tablet 300 Mg PO 0800,1700 TAKES OF A 600MG TAB Instructions to patient/family Please see electronic discharge instructions given to patient. Copy Copies To 1: JOSE Adkins MD Nov 26, 2022 08:23
[2022-11-26] MEDS ORDERED: PRED10TA22 PO (08:25)
--- NOTE | 2022-11-26 08:32 | Discharge Inst-Simple/Standard ---
Discharge Inst-Standard Discharge Medications New, Converted or Re-Newed RX: Transmitted to Pharmacy Patient Instructions/Follow Up Plan of Care/Instructions/FU: Please continue to take your medications as written. Please follow up with your primary care doctor to follow up this hospital stay. Activity as Tolerated: Yes Discharge Diet: Low Sodium Diet Return to The Hospital For: Chest pain, shortness of breath, fever, weakness, if you feel you are getting worse. JOES VELASQUEZ MD Nov 26, 2022 08:32
[2022-11-26] MEDS ORDERED: ALLOPURINOL 100 MG TABLET PO SCH (09:00)
[2022-11-26] MEDS ORDERED: amLODIPine 10 MG TABLET PO SCH (09:00)
[2022-11-26] MEDS ORDERED: VITAMIN D3 125 MCG (5,000 UNITS) TABLET PO SCH (09:00)
[2022-11-26] MEDS ORDERED: OMEPRAZOLE 20 MG CAPSULE (NON-FORMULARY) PO SCH (09:00)
[2022-11-26] MEDS ORDERED: PANTOPRAZOLE 20 MG TABLET PO SCH (09:00)
[2022-11-26] MEDS ORDERED: DULoxetine 30 MG CAPSULE PO SCH (09:00)
[2022-11-26] MEDS ORDERED: NON-FORMULARY MEDICATION 1 EA EA (Duloxetine HCl 60 MG) PO SCH (09:00)
[2022-11-26] MEDS ORDERED: POTASSIUM CHLORIDE 20 MEQ TABLET PO ONE (09:00)
[2022-11-26] MEDS ORDERED: TAMSULOSIN 0.4 MG (FLOMAX) CAP PO SCH (09:00)
[2022-11-26] MEDS: AMOXICILLIN/Clavulanate 875 MG TABLET PO SCH (09:01)
[2022-11-26] MEDS: predniSONE 20 MG TABLET PO SCH (09:06)
== END 2022-11-26 13:20 | disposition home or self-care (01) ==
LOC: EDUNIT# 12:12 → ER 12:13 → CSD 16:07 → UNDOADMOB 16:07 → CSD 16:32 → UNDODISOB 11-26 13:20
PROVIDERS: ADMIT Family Medicine; ATTEND Family Medicine
DX: J44.1 Chronic obstructive pulmonary disease with (acute) exacerbation (principal); J96.00 Acute respiratory failure, unspecified whether with hypoxia or hypercapnia; R77.8 Other specified abnormalities of plasma proteins; E87.6 Hypokalemia; I12.0 Hypertensive chronic kidney disease with stage 5 chronic kidney disease or end stage renal disease; N18.6 End stage renal disease; E78.5 Hyperlipidemia, unspecified; R79.1 Abnormal coagulation profile; Z87.891 Personal history of nicotine dependence; Z90.5 Acquired absence of kidney
CPT/HCPCS: 36600; 71045; 78580; 80048 ×2; 80053; 82805; 83605; 83735; 83880; 84484 ×2; 85025; 85027 ×2; 85379; 85610; 85730; 87040; 87636; 93005; 93041; 94640 ×3; 94761; 96372 ×3; 96374; 99284; A9540; C8929; G0378; 36415; 93306

== ENCOUNTER 2023-02-19 20:43 | Outpatient (CLI) | payer MEDICARE ==
[~2023-02-19 20:43] MED LIST changes: +ALBU2.5V4 NEB; +AMOX1TAB12 PO; +ATOR20TA66 PO; +CHLO25TA22 PO; +MIRA50TA PO; +OXYB10TA29 PO; +PRAM0.128 PO; +PRED10TA22 PO; +RT-ALBUINH INH; +SUVO5TAB2 PO
== END 2023-02-20 06:16 ==
LOC: SLEEP 20:43
PROVIDERS: ATTEND Internal Medicine Critical Care Medicine
DX: G47.33 Obstructive sleep apnea (adult) (pediatric) (principal); G47.36 Sleep related hypoventilation in conditions classified elsewhere; G47.10 Hypersomnia, unspecified; R06.83 Snoring
CPT/HCPCS: 95811